=== PATIENT | female | born 1935 | race Caucasian/White ===

== ENCOUNTER → 2017-03-17 | Outpatient (CLI) | payer MEDICARE, BC ==
--- NOTE | 2017-03-17 14:27 | MM ---
Reason for exam: additional evaluation requested from prior study. Last mammogram was performed 1 year ago. History: Patient is postmenopausal and has history of breast cancer at age 63. Family history of premenopausal breast cancer in maternal aunt at age 38, breast cancer in maternal cousin at age 40, and breast cancer in maternal cousin at age 50. Benign stereotactic core biopsy of the right breast, February 26, 2004. Benign stereotactic core biopsy of the right breast, February 26, 2004. Benign stereotactic core biopsy of the left breast, October 29, 1998. Malignant lumpectomy of the left breast, March 03, 1998. Core biopsy of the left breast, February 17, 1998. Malignant stereotactic core biopsy of the left breast, February 17, 1998. Core biopsy of the left breast. 2 core biopsies of the right breast. Radiation therapy of the left breast. Took hormonal contraceptives for 7 years beginning at age 40. Took estrogen for 11 years beginning at age 52. Took progesterone for 11 years beginning at age 52. Took antineoplastic for 5 years. Physical Findings: Nurse did not find any significant physical abnormalities on exam. MG 3D Diag Mammo W/Cad TRINI Bilateral CC and MLO view(s) were taken. Prior study comparison: March 15, 2016, bilateral MG 3d diag mammo w/cad TRINI. March 13, 2015, bilateral MG 3d diag mammo w/cad TRINI. The breast tissue is heterogeneously dense. This may lower the sensitivity of mammography. Stable benign calcifications. Stable post operative distortion. No significant new findings when compared with previous films. These results were verbally communicated with the patient and result sheet given to the patient on 03/17/17. ASSESSMENT: Benign, BI-RAD 2 RECOMMENDATION: Routine screening mammogram of both breasts. Manage patient on a clinical basis.
--- NOTE | 2017-03-17 15:15 | BD ---
EXAMINATION TYPE: MG DEXA axial skeleton. DATE OF EXAM: 03/17/2017 COMPARISON: NONE CLINICAL HISTORY: Osteoporosis Height: 5 FT 1/4 IN Weight: 150 FRAX RISK QUESTIONS: Alcohol (3 or more units per day): NO Family History (Parent hip fracture): NO Glucocorticoids (More than 3mos): NO (Ex: prednisone, prednisolone, methylprednisolone, dexamethasone, and hydrocortisone). History of Fracture in Adulthood: YES Secondary Osteoporosis: 1. Type 1 Diabetes: NO 2. Hyperthyroidism: NO 3. Menopause before 45: NO 4. Malnutrition: NO 5. Chronic liver disease: NO Rheumatoid Arthritis: NO Current Tobacco Use: NO RISK FACTORS HISTORY OF: Spine Fracture: LUMBAR FX When: 1985 Surgery to Spine/Hip(right/left)/Wrist (right/left): LUMBAR SURG When: 1985 Active: YES Postmenopausal woman: AGE 50 Lost more than 2 inches in height since high school: YES MEDICATIONS: Additional Medications: MOBIC, SIMVASTATIN, NEURONTIN Additional History: EXAM MEASUREMENTS: Bone mineral density about the R hip (g/cm2): 1.067 Bone mineral density about the L hip (g/cm2): 1.040 T Score values are as follows: -----R Neck: 0.2 -----L Neck: 0.0 -----R Total: 0.4 -----L Total: 0.4 Bone mineral density has: DECREASED -0.3 % since study of: 2006 IMPRESSION: No evidence for osteoporosis at this time. NOTE: T-SCORE=SD OF THE YOUNG ADULT MEAN.
== END | disposition home or self-care (01) ==
LOC: RADMAMWWP 13:36
PROVIDERS: ATTEND Internal Medicine
DX: Z08 Encounter for follow-up examination after completed treatment for malignant neoplasm (principal); M81.0 Age-related osteoporosis without current pathological fracture; Z85.3 Personal history of malignant neoplasm of breast
CPT/HCPCS: 77080; G0204; G0279

== ENCOUNTER → 2018-07-10 | Outpatient (CLI) | payer MEDICARE, BC ==
--- NOTE | 2018-07-10 11:46 | MM ---
Reason for exam: additional evaluation requested from prior study. Last mammogram was performed 1 year and 4 months ago. History: Patient is postmenopausal and has history of breast cancer at age 63. Family history of premenopausal breast cancer in maternal aunt at age 38, breast cancer in maternal cousin at age 40, and breast cancer in maternal cousin at age 50. Benign stereotactic core biopsy of the right breast, February 26, 2004. Benign stereotactic core biopsy of the right breast, February 26, 2004. Benign stereotactic core biopsy of the left breast, October 29, 1998. Malignant lumpectomy of the left breast, March 03, 1998. Core biopsy of the left breast, February 17, 1998. Malignant stereotactic core biopsy of the left breast, February 17, 1998. Core biopsy of the left breast. 2 core biopsies of the right breast. Radiation therapy of the left breast. Took hormonal contraceptives for 7 years beginning at age 40. Took estrogen for 11 years beginning at age 52. Took progesterone for 11 years beginning at age 52. Took antineoplastic for 5 years. Physical Findings: Nurse did not find any significant physical abnormalities on exam. MG 3D Diag Mammo W/Cad TRINI Bilateral CC and MLO view(s) were taken. Prior study comparison: March 17, 2017, bilateral MG 3d diag mammo w/cad TRINI. March 15, 2016, bilateral MG 3d diag mammo w/cad TRINI. The breast tissue is heterogeneously dense. This may lower the sensitivity of mammography. Finding #1: Architectural distortion in the left breast consistent with known lumpectomy changes. Finding #2: There are typically benign vascular, round, linear calcifications in both breasts. Previous mammotome biopsy in the right breast x 2. There is no discrete abnormality. These results were verbally communicated with the patient and result sheet given to the patient on 07/10/18. ASSESSMENT: Benign, BI-RAD 2 RECOMMENDATION: Follow-up diagnostic mammogram of both breasts in 1 year.
== END | disposition home or self-care (01) ==
LOC: RADMAMWWP 10:05
PROVIDERS: ATTEND Internal Medicine
DX: Z08 Encounter for follow-up examination after completed treatment for malignant neoplasm (principal); Z85.3 Personal history of malignant neoplasm of breast
CPT/HCPCS: 77066; G0279; 77062

== ENCOUNTER → 2019-09-11 | Outpatient (CLI) | payer MEDICARE, BC ==
--- NOTE | 2019-09-11 13:40 | MM ---
Reason for exam: additional evaluation requested from prior study. Last mammogram was performed 1 year and 2 months ago. History: Patient is postmenopausal and has history of breast cancer at age 63. Family history of premenopausal breast cancer in maternal aunt at age 38, breast cancer in maternal cousin at age 40, and breast cancer in maternal cousin at age 50. Benign stereotactic core biopsy of the right breast, February 26, 2004. Benign stereotactic core biopsy of the right breast, February 26, 2004. Benign stereotactic core biopsy of the left breast, October 29, 1998. Malignant lumpectomy of the left breast, March 03, 1998. Core biopsy of the left breast, February 17, 1998. Malignant stereotactic core biopsy of the left breast, February 17, 1998. Core biopsy of the left breast. 2 core biopsies of the right breast. Radiation therapy of the left breast. Took hormonal contraceptives for 7 years beginning at age 40. Took estrogen for 11 years beginning at age 52. Took progesterone for 11 years beginning at age 52. Took antineoplastic for 5 years. Physical Findings: Nurse did not find any significant physical abnormalities on exam. MG 3D Diag Mammo W/Cad TRINI Bilateral CC and MLO view(s) were taken. Prior study comparison: July 10, 2018, bilateral MG 3d diag mammo w/cad TRINI. March 17, 2017, bilateral MG 3d diag mammo w/cad TRINI. The breast tissue is heterogeneously dense. This may lower the sensitivity of mammography. Benign calcifications. Stable post operative changes left breast. These results were verbally communicated with the patient and result sheet given to the patient on 09/11/19. ASSESSMENT: Benign, BI-RAD 2 RECOMMENDATION: Follow-up diagnostic mammogram of both breasts in 1 year. Manage patient on a clinical basis.
== END | disposition home or self-care (01) ==
LOC: RADMAMWWP 12:57
PROVIDERS: ATTEND Internal Medicine
DX: Z08 Encounter for follow-up examination after completed treatment for malignant neoplasm (principal); Z85.3 Personal history of malignant neoplasm of breast
CPT/HCPCS: 77066; G0279; 77062

== ENCOUNTER → 2019-10-17 | Outpatient (CLI) | payer MEDICARE, BC ==
--- NOTE | 2019-10-17 10:58 | XR ---
EXAMINATION TYPE: XR chest 2V DATE OF EXAM: 10/17/2019 COMPARISON: CT December 27, 2013. Two-view chest x-ray October 03, 2012. HISTORY: History of breast cancer with productive cough for 5 months. TECHNIQUE: Frontal and lateral views of the chest are obtained. FINDINGS: There is no focal air space opacity, pleural effusion, or pneumothorax seen. The cardiac silhouette size is within normal limits with atherosclerotic thoracic aorta. S-shaped scoliosis with multilevel spurring. Asymmetric diminished size of left breast likely reflects lumpectomy changes giv en patient's history of breast cancer. IMPRESSION: No acute cardiopulmonary process.
== END | disposition home or self-care (01) ==
LOC: RADXRMAIN 10:32
PROVIDERS: ATTEND Internal Medicine
DX: R05 Cough (principal)
CPT/HCPCS: 71046

== ENCOUNTER → 2019-11-26 | Outpatient (CLI) | payer MEDICARE, BC ==
--- NOTE | 2019-11-26 17:08 | BD ---
EXAMINATION TYPE: Axial Bone Density DATE OF EXAM: 11/26/2019 COMPARISON: NONE CLINICAL HISTORY: Height: 60 Weight: 143.1 FRAX RISK QUESTIONS: Alcohol (3 or more units per day): no Family History (Parent hip fracture): no Glucocorticoids (More than 3mos): no (Ex: prednisone, prednisolone, methylprednisolone, dexamethasone, and hydrocortisone). History of Fracture in Adulthood: no Secondary Osteoporosis: 1. Type 1 Diabetes: no 2. Hyperthyroidism: no 3. Menopause before 45: no 4. Malnutrition: no 5. Chronic liver disease: no Rheumatoid Arthritis: no Current Tobacco Use: no RISK FACTORS HISTORY OF: Surgery to Spine/Hip(right/left)/Wrist (right/left): lumbar spine When: 40 years ago Family History of Osteoporosis: no Active: yes Diet low in dairy products/other sources of calcium: no Postmenopausal woman: age 50 Lost more than 2 inches in height since high school: yes MEDICATIONS: arthritis meds, blood pressure meds, cholesterol meds Additional History: EXAM MEASUREMENTS: Bone mineral densitometry was performed using the [employer] System. Bone mineral density about the R hip (g/cm2): 1.116 Bone mineral density about the L hip (g/cm2): 1.142 T Score values are as follows: -----R Neck: 0.6 -----L Neck: 0.7 -----R Total: 0.1 -----L Total: 0.4 Bone mineral density has: decreased -1.3 % since study of: 03.17.2017 Bone mineral density about the L Wrist (g/cm2): 0.498 T Score values are as follows: -----Dist. R+U: -2.6 -----Prox. R+U: -2.5 -----Radius total: -2.9 Bone mineral density : baseline IMPRESSION: Osteoporosis (T Score less than -2.5). There is increased fracture risk and therapy is usually indicated based on age. Re-Screen 1-2 years. NOTE: T-SCORE=SD OF THE YOUNG ADULT MEAN.
== END | disposition home or self-care (01) ==
LOC: RADBDWWP 12:29
PROVIDERS: ATTEND Internal Medicine
DX: M81.0 Age-related osteoporosis without current pathological fracture (principal)
CPT/HCPCS: 77080

== ENCOUNTER → 2020-01-04 | Outpatient (CLI) | payer MEDICARE, BC | END | disposition home or self-care (01) | LOC: LABPAT 14:21 | PROVIDERS: ATTEND Family Medicine | DX: Z01.818 Encounter for other preprocedural examination (principal) | CPT/HCPCS: 93005 ==

== ENCOUNTER → 2020-01-11 | Outpatient (CLI) | payer MEDICARE, BC | END | disposition home or self-care (01) | LOC: LABPAT 14:21 | PROVIDERS: ATTEND Orthopaedic Surgery | DX: Z01.812 Encounter for preprocedural laboratory examination (principal) | CPT/HCPCS: 87070 ==

== ENCOUNTER → 2020-01-14 | Outpatient (CLI) | payer MEDICARE, BC | END | disposition home or self-care (01) | LOC: LABPAT 14:41 | PROVIDERS: ATTEND Orthopaedic Surgery | DX: Z01.818 Encounter for other preprocedural examination (principal); M16.12 Unilateral primary osteoarthritis, left hip; Z79.01 Long term (current) use of anticoagulants | CPT/HCPCS: 36415; 80053; 81003; 85610; 85730; 86850; 86900; 86901 ==

== ENCOUNTER 2020-01-22 08:01 | Day surgery (SDC) | payer MEDICARE, BC ==
[2020-01-14 15:40] LABS: Appearance,Urine Clear (Clear); Bilirubin,Urine Negative (Negative); Blood,Urine Negative (Negative); Color,Urine Light Yellow; Glucose,Urine (UA) Negative (Negative); Ketones,Urine Negative (Negative); Leukocyte Esterase,Urine Negative (Negative); Nitrite,Urine Negative (Negative); PH, Urine 5.5 (5.0-8.0); Protein,Urine Negative (Negative); Specific Gravity,Urine 1.006 (1.001-1.035); Urobilinogen,Urine <2.0 mg/dL (<2.0)
[2020-01-14 16:19] LABS: INR 0.9 (<1.2); Partial Thromboplastin Time 23.9 sec (22.0-30.0); Prothrombin Time 9.7 sec (9.0-12.0)
[2020-01-14 17:33] LABS: Albumin 4.3 g/dL (3.5-5.0); Potassium 5.5 mmol/L (3.5-5.1); Total Bilirubin 0.5 mg/dL (0.2-1.3); Total Protein 6.7 g/dL (6.3-8.2)
[2020-01-15 14:44] VITALS: BMI 25.3
[~2020-01-22 08:01] MED LIST: ACETAMINOPHEN TAB 500 MG TAB PO ONE; GABAPENTIN 300 MG CAP PO ONE; HYDROmorphone 0.5 MG/0.5 ML SYRINGE IVP PRN; LIDOCAINE 1% (10MG/ML) FOR IV START INTRADERMA PRN; MELOXICAM 7.5 MG TAB PO ONE; ONDANSETRON 4 MG/2 ML VIAL IVP ONE; TRANEXAMIC ACID 1,000 MG in SODIUM CHLORIDE 0.9% 100 ML IVPB ONE
[2020-01-22] MEDS ORDERED: DEXAMETHASONE SOD PHOSPHATE 10 MG/ML 1 ML VIAL IV ONE (08:54)
[2020-01-22] MEDS: LACTATED RINGERS 1,000 ML IV SCH (08:55)
[2020-01-22] MEDS ORDERED: NALOXONE 0.4 MG/ML 1 ML VIAL IV PRN (09:37)
[2020-01-22] MEDS ORDERED: HYDROmorphone 0.5 MG/0.5 ML SYRINGE IVP PRN ×3 (09:37)
[2020-01-22] MEDS ORDERED: ONDANSETRON 4 MG/2 ML VIAL IVP PRN (09:37)
[2020-01-22] MEDS ORDERED: MAGNESIUM HYDROXIDE 2,400 MG/10 ML CUP PO PRN (09:37)
[2020-01-22] MEDS ORDERED: PROPOFOL 10 MG/ML 20 ML VIAL IV ONE (09:58)
[2020-01-22] MEDS ORDERED: SODIUM CHLORIDE 0.9% IRRIG 1,000 ML BTL IRRIGATION ONE (09:58)
[2020-01-22] MEDS ORDERED: SODIUM CHLORIDE 0.9% 100 ML BAG ONE (09:58)
[2020-01-22] MEDS ORDERED: HEPARIN SODIUM,PORCINE 10,000 UNIT/ML 1 ML VIAL ONE (09:58)
[2020-01-22] MEDS ORDERED: TRANEXAMIC ACID 1,000 MG/10 ML VIAL ONE (09:58)
[2020-01-22] MEDS ORDERED: MIDAZOLAM 2 MG/2 ML VIAL ONE (09:58)
[2020-01-22] MEDS ORDERED: ceFAZolin 3,000 MG in SODIUM CHLORIDE 0.9% IRRIGATIO 3,000 ML IRRIGATION ONE (10:01)
[2020-01-22] MEDS: ROPIVACAINE 246.25 MG, EPINEPHrine 0.5 MG, KETOROLAC 30 MG, cloNIDine HCL/PF 80 MCG, WA... MISCELLANE ONE ×10 (10:30→11:00)
--- NOTE | 2020-01-22 11:06 | P.OP ---
Date of Procedure: 01/22/20 Preoperative Diagnosis: Severe osteoarthritis left hip Postoperative Diagnosis: Severe osteoarthritis left hip Procedure(s) Performed: Left total hip arthroplasty with a direct anterior approach Implants: Chambers and nephew Polarstem size 1 standard Chambers & Nephew R3, 3 hole acetabular shell, 48 mm Chambers & Nephew reflection 6.5 mm cancellus screw, 20 mm 2 Chambers [employer] Nephew R3, XLPE 20 acetabular liner Chambers & Nephew Oxinium femoral head 32 m, +0 All components were press-fit. The articulation is Oxinium on polyethylene. Anesthesia: spinal Surgeon: Sherman Navarro Bone Crusher #1: Ana Smith Estimated Blood Loss (ml): 200 (65 mL returned with Cell Saver) Pathology: other (Femoral head) Condition: stable Disposition: PACU Indications for Procedure: After failure of conservative treatment we discussed the surgical and nonsurgical treatment options at length. Patient wishes to proceed with a total hip arthroplasty with a direct anterior approach. Complications specific to this procedure were discussed at length, including but not limited to infection, leg length discrepancy, dislocation, and nerve injury. Covid-19 was also discussed at length with the patient, and they are aware of the current policies and procedures. The patient was given the option of delaying surgery, but they elect to proceed knowing these risks. Patient is aware of all these complications and informed consent was obtained Operative Findings: The operative findings are consistent with severe osteoarthritis the left hip Description of Procedure: Patient was seen and evaluated in the preoperative area, consent was reviewed, and the surgical site was marked with a skin marker. Patient was then brought to the operating room and given prophylactic antibiotics intravenously. 1 g of Tranexamic acid was also given. A spinal anesthetic was administered by the anesthesia department. The patient was then placed on the Roosevelt table with the bony prominences well-padded. The hip area was then prepped and draped in usual sterile fashion. A universal timeout was then performed, which confirmed the patient's name, surgical site, ALLERGIES, and procedure being performed. Next the incision site was located at 1 cm distal and 1 cm lateral to the anterior superior iliac spine. The skin and subcutaneous tissues were sharply incised. Incision was carefully dissected down to the fascia overlying the tensor fascia jaye muscle. This fascia was then incised in line with the incision. Next, using blunt finger dissection, the tensor fascia jaye muscle was dissected off its investing fascia. The muscle was then carefully retracted laterally with a cobra retractor over the lateral neck of the femur. Next, the circumflex vessels were identified and cauterized using the AquaMantis device. The anterior hip capsule was then exposed. The capsule was then opened and an inverted T fashion. Cobra retractors were then placed intracapsularly. The proximal femur was then visualized. The femoral neck was then osteotomized appropriate level above the lesser trochanter. Small amount of traction was placed with the Roosevelt table. A small wedge of bone was then removed from the remaining femoral head. Next, using a corkscrew femoral head was easily removed from the acetabulum. On gross visual inspection, the femoral head had complete loss of articular cartilage in multiple periarticular osteophytes. Attention was then turned to the acetabulum. the acetabulum was exposed and any remaining labrum was excised. Sequential reaming of the acetabulum was performed using fluoroscopic guidance. When the appropriate size was reached, a trial was then placed. The position and fit of the trial was checked with fluoroscopy. The trial was then removed. Then, using fluoroscopic guidance, the final implant was impacted at 20 of anteversion and 40 of abduction, and fully seated in the acetabulum. 2 screws were then placed in the acetabulum. Again fluoroscopy was used to check position of the screws. Next, the liner was then impacted, with a 20 elevated liner located in the anterior superior quadrant. Component locking was confirmed. Attention was then directed to the femur. With the aid of the Roosevelt table, the femur was externally rotated to approximately 130, extended, and abducted under the opposite leg. A side hook was then placed under the proximal femur, and the side hook elevator was used to elevate the proximal femur. Retractors were then placed. A capsular release was performed, as well as a release of the conjoined tendon, which afforded excellent visualization of the proximal femur. Next, a box osteotome was used to lateralize the proximal femur. A handle bender was then used to locate the femoral canal. Sequential broaching was then performed with appropriate size which afforded excellent fixation in the proximal femur. A trial was then placed with appropriate head and neck, and the hip was gently reduced with the aid of the Roosevelt table. Fluoroscopy was then used to check position of the components, as well as to ensure equal leg lengths. The hip was then gently dislocated and the trials were then removed. Final implants were then impacted and the hip was again reduced. Final fluoroscopic x-rays confirmed that the components were in anatomic position, as well as equal leg lengths. The hip was also taken through range of motion, and found to be stable. The hip was then copiously irrigated with antibiotic solution with pulsatile lavage. The hip was then irrigated with Irrisept solution. The soft tissues were then injected with a ropivacaine solution, which consisted of 246.25 mg of ropivacaine, 0.5 mg of epinephrine, 30 mg of Toradol, 80 g of clonidine, and 48.45 mL of sterile water, for a total of 100 mL of fluid injected. A second dose of 1 g of Tranexamic acid was also given. the fascia was then closed with 2-0 strata fix suture. The subcutaneous tissue was closed with 3-0 Vicryl. The subcuticular tissue was closed with 3-0 strata fix suture. The skin was then closed with Dermabond glue and a sterile silver dressing. The patient was then transferred to the recovery room in stable condition. The nurse practitioner physician assistant LUIZ Atwood was required due to the complexity of surgery, and the need for skilled guest services assistant for positioning, draping, exposure, retraction, and closure of the wound.
--- NOTE | 2020-01-22 12:11 | XR ---
EXAMINATION TYPE: XR Hip Limited LT DATE OF EXAM: 01/22/2020 CLINICAL HISTORY: Left hip pain and osteoarthritis. TECHNIQUE: Single AP portable view of left hip is obtained immediately postoperatively. COMPARISON: None. FINDINGS: Metallic hardware from left hip arthroplasty is seen and appears satisfactory in alignment and position. There is evidence of recent surgery with subcutaneous gas noted surrounding prosthesis extending superiorly. IMPRESSION: Metallic hardware from left hip arthroplasty is satisfactory in position.
--- NOTE | 2020-01-22 13:33 | FL ---
EXAMINATION TYPE: FL guidance operating room, XR Hip Limited LT DATE OF EXAM: 01/22/2020 CLINICAL HISTORY: Left hip pain and osteoarthritis. TECHNIQUE: Fluoroscopy. Intraoperative limited views left hip. COMPARISON: None. FINDINGS: Fluoroscopic guidance was provided during left hip replacement procedure performed by Dr. Navarro. A total of 39 seconds of fluoroscopic time was utilized during the procedure and two spot images was acquired. Intraoperative images acquired show metallic hardware from total hip arthroplasty satisfactory in pos ition on frontal projection. IMPRESSION: As Above.
[2020-01-22] MEDS: HYDROcodone/APAP 5-325MG 1 EACH TAB PO PRN ×2 (14:32→20:59)
--- NOTE | 2020-01-22 15:02 | P.CONS ---
History of Present Illness - Reason for Consult Consult date: 01/22/20 Medical management hypertension, hyperlipidemia, anxiety Requesting physician: Sherman Navarro - Chief Complaint Severe left hip osteoarthritis status post left total hip arthroplasty - History of Present Illness This is an 84-year-old female with history of left hip severe osteoarthritis, status post left total hip arthroplasty in a patient with past medical history of breast cancer, hyperlipidemia, hypertension, osteoarthritis, former smoker, anxiety, multiple other medical issues. Just returned back ,tolerated procedure well. Currently denies pain. Denies chest pain, palpitations or shortness of breath. Hard of hearing, does not have her hearing aids in. Labs from 01/14/2020 reported sodium 126, potassium 5.5. Review of Systems ROS Statement: Those systems with pertinent positive or pertinent negative responses have been documented in the HPI. ROS Other: All systems not noted in ROS Statement are negative. Past Medical History Past Medical History: Cancer, Hyperlipidemia, Hypertension, Musculoskeletal Disorder, Osteoarthritis (OA) Additional Past Medical History / Comment(s): hx. breast cancer 20 yrs. 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 Past Anesthesia/Blood Transfusion Reactions: Previous Problems w/ Anesthesia Additional Past Anesthesia/Blood Transfusion Reaction / Comm: slow to come out of anesthesia Past Psychological History: Anxiety Smoking Status: Former smoker Past Alcohol Use History: Daily Additional Past Alcohol Use History / Comment(s): quit smoking @age of 30, <ppd for approx. 15 yrs., glass of wine daily w/dinner Past Drug Use History: None Reported - Past Family History Mother Sister(s) Family Medical History: Cancer Medications and Allergies Home Medications Medication Instructions Recorded Confirmed Type Meloxicam [Mobic] 7.5 mg PO DAILY 12/27/13 01/22/20 History Simvastatin [Zocor] 10 mg PO HS 12/27/13 01/22/20 History Calcium Carbonate [Calcium] 600 mg PO DAILY 01/15/20 01/22/20 History Cholecalciferol [Vitamin D3 (25 2,000 unit PO DAILY 01/15/20 01/22/20 History Mcg = 1000 Iu)] Gabapentin [Neurontin] 600 mg PO BID 01/15/20 01/22/20 History Glucosamine/Chondr Lopez A Sod [Osteo 1 each PO DAILY 01/15/20 01/22/20 History Bi-Flex Caplet] Losartan Potassium [Cozaar] 100 mg PO DAILY 01/15/20 01/22/20 History Magnesium Oxide [Mag-Oxide] 200 mg PO HS 01/15/20 01/22/20 History Ubidecarenone [Co Q-10] 100 mg PO DAILY 01/15/20 01/22/20 History traMADol HCL [Ultram] 50 mg PO Q6HR PRN 01/15/20 01/22/20 History Allergies Allergy/AdvReac Type Severity Reaction Status Date / Time influenza virus vaccine qs Allergy Anaphylaxis Verified 01/22/20 08:20 2012- [From Single Use EZ Flu] Iodinated Contrast Media Allergy Unknown Verified 01/22/20 08:20 [Iodinated Contrast Media - IV Dye] Sulfa (Sulfonamide Allergy Nausea & Verified 01/22/20 08:20 Antibiotics) Vomiting Physical Exam Vitals: Vital Signs Temp Pulse Pulse Resp BP Pulse Ox 01/22/20 12:19 66 16 109/52 100 01/22/20 12:04 70 16 111/52 93 L 01/22/20 11:45 72 14 97/47 95 01/22/20 11:29 96.8 F L 79 18 110/52 95 01/22/20 08:27 97.4 F L 84 16 176/74 99 Intake and Output 01/21/20 01/22/20 01/22/20 22:59 06:59 14:59 Intake Total 971 Output Total 200 Balance 771 Intake: IV 971 Output: Estimated Blood Loss 200 Other: Weight 62 kg PHYSICAL EXAM: VITAL SIGNS: As above GENERAL: Lying in bed, no acute distress HEENT: Conjunctivae normal. eyes normal. NECK: No JVD. No thyroid enlargement. No LNs CARDIOVASCULAR: S1, S2 regular. No murmur RESPIRATION: Breath sounds diminished in the bases. No rhonchi or crackles. No bronchial breathing. ABDOMEN: Soft, nontender . No guarding. no masses palpable. No ascites, No hepatosplenomegaly.Bowel sounds heard. EXTREMITIES: Left hip dressing clean dry and intact, minimal edema, Positive PT,DP pulses PSYCHIATRY: Alert and oriented X3, mood and affect normal. Mild anxiety. NERVOUS SYSTEM: Cranial N 2-12 grossly normal. Moves all 4 limbs. No focal deficits. Strength and sensation grossly intact. Skin: no lesions, no rash Lymphatic system. No LN neck axilla. Results CBC & Chem 7: 01/14/20 15:01 Assessment and Plan Assessment: Severe osteoarthritis of left hip, failed conservative management ,status post left total hip arthroplasty with direct anterior approach Hyponatremia, from labs of 01/14/2020, BMP pending Hyperkalemia, from labs of 01/14/2020, BMP pending Hypertension Hyperlipidemia History of breast cancer Former nicotine dependence Hospital course: Continue her medication regime ,monitoring and symptomatic treatment. Pain management, anticoagulation as per orthopedic surgery. PT/OT. Home meds have been reviewed and resumed accordingly. GI prophylaxis of Protonix added. f/u BMP pending. Thank you Dr. Navarro for this consult. The impression and plan of care has been dictated as directed. : I performed a history and examination of this patient, discussed the same with the dictator. I agree with the dictator's note ,documented as a scribe. Any additional findings or plans will be noted.
[2020-01-22 15:15] LABS: Sodium 128 mmol/L (137-145)
[2020-01-22 15:17] LABS: African American GFR (CKD) >90 (>60 ml/min/1.73 sqM); Anion Gap 5 mmol/L; Blood Urea Nitrogen 23 mg/dL (7-17); Calcium 8.8 mg/dL (8.4-10.2); Carbon Dioxide 23 mmol/L (22-30); Chloride 100 mmol/L (98-107); Glucose 175 mg/dL (74-99); Non-African American GFR(CKD) 80 (>60 ml/min/1.73 sqM); Potassium 4.6 mmol/L (3.5-5.1)
[2020-01-22] MEDS: SODIUM CHLORIDE 0.9% 1,000 ML IV SCH (17:33)
[2020-01-22] MEDS: PANTOPRAZOLE 40 MG/10 ML VIAL IVP SCH (19:18)
[2020-01-22] MEDS: SENNOSIDES-DOCUSATE SODIUM 1 EACH TAB PO SCH (20:58)
[2020-01-22] MEDS: ASPIRIN 325 MG TAB PO SCH (20:59)
[2020-01-23] MEDS: SODIUM CHLORIDE 0.9% 1,000 ML IV SCH ×2 (01:42→18:30)
[2020-01-23] MEDS: LACTATED RINGERS 1,000 ML IV SCH (03:45)
[2020-01-23 06:18] LABS: Basophils % (A) 0 %; Eosinophils # (A) 0.1 k/uL (0-0.7); Eosinophils % (A) 1 %; HCT 27.7 % (34.0-46.0); HGB 9.1 gm/dL (11.4-16.0); Lymphocytes # (A) 1.4 k/uL (1.0-4.8); Lymphocytes % (A) 15 %; MCH 31.9 pg (25.0-35.0); MCHC 32.7 g/dL (31.0-37.0); MCV 97.4 fL (80.0-100.0); Mean Platelet Volume 6.8; Monocytes # (A) 0.4 k/uL (0-1.0); Monocytes % (A) 5 %; Neutrophils # (A) 7.2 k/uL (1.3-7.7); Neutrophils % (A) 78 %; Platelet Count 177 k/uL (150-450); RBC 2.84 m/uL (3.80-5.40); RDW 12.2 % (11.5-15.5); WBC 9.2 k/uL (3.8-10.6)
[2020-01-23] MEDS: LOSARTAN 50 MG TAB PO SCH (09:21)
[2020-01-23] MEDS: ASPIRIN 325 MG TAB PO SCH ×2 (09:35→20:53)
[2020-01-23] MEDS: PANTOPRAZOLE 40 MG/10 ML VIAL IVP SCH (09:45)
[2020-01-23] MEDS: MELOXICAM 7.5 MG TAB PO SCH (09:45)
[2020-01-23] MEDS: GABAPENTIN 300 MG CAP PO SCH ×2 (09:45→20:53)
--- NOTE | 2020-01-23 10:01 | P.PN ---
Subjective Progress Note Date: 01/23/20 This is a 84-year-old female who is status post left total hip arthroplasty. This is postoperative day #1 and patient is seen and evaluated at bedside with Dr. Sherman Navarro. Patient does complain of some soreness in the left hip today. Per nursing, the patient had an episode of dizziness on the commode after walking the halls with physical therapy. Patient denies any fever/chills, numbness, weakness, tingling, abdominal pain, shortness of breath or chest pain. Objective - Vital Signs Vital signs: Vital Signs Temp 98.2 F 01/23/20 07:37 Pulse 71 01/23/20 07:37 Resp 14 01/23/20 07:37 BP 103/60 01/23/20 07:37 Pulse Ox 96 01/23/20 02:15 Intake & Output 01/22/20 01/23/20 01/23/20 18:59 06:59 18:59 Intake Total 1036 Output Total 200 Balance 836 Weight 62 kg Intake: IV 971 Intake, IV Titration 65 Amount Sodium Chloride 0.9% 1, 65 000 ml @ 65 mls/hr IV . [id number] [facility] Rx#:[id number] Output: Estimated Blood Loss 200 Other: Voiding Method Toilet # Voids 2 - Exam Vital signs are stable. Patient is in no acute distress and is alert and orien holli 3. Calf is soft and nontender to palpation. Dressing is clean, dry, and intact. Patient has full foot and ankle motion without pain or difficulty. Neurovascular status and circulatory status are intact. - Labs CBC & Chem 7: 01/23/20 05:18 01/22/20 14:39 Labs: Abnormal Lab Results - Last 24 Hours (Table) 01/22/20 01/23/20 Range/Units 14:39 05:18 RBC 2.84 L (3.80-5.40) m/uL Hgb 9.1 L (11.4-16.0) gm/dL Hct 27.7 L (34.0-46.0) % Sodium 128 L (137-145) mmol/L BUN 23 H (7-17) mg/dL Glucose 175 H (74-99) mg/dL Assessment and Plan Plan: Continue routine postop care and pain control. Continue anticoagulation with aspirin 325 mg twice a day. Weightbearing as tolerated with a walker. Leave dressing in place for 10 days. Appreciate input from medicine. Will monitor the patient's symptoms of dizziness. Hemoglobin is 9.1 today. Patient's vital signs are stable. Likely discharge home with homecare tomorrow.
--- NOTE | 2020-01-23 16:10 | P.PN ---
Subjective Progress Note Date: 01/23/20 This is an 84-year-old female with history of left hip severe osteoarthritis, status post left total hip arthroplasty in a patient with past medical history of breast cancer, hyperlipidemia, hypertension, osteoarthritis, former smoker, anxiety, multiple other medical issues. Just returned back ,tolerated procedure well. Currently denies pain. Denies chest pain, palpitations or shortness of breath. Hard of hearing, does not have her hearing aids in. Labs from 01/14/2020 reported sodium 126, potassium 5.5. 01/23/2020 postop day #1. Upon ambulating with PT in hallway and again to bathroom, developed dizziness, relieved with rest. Hemoglobin 9.1, prior hemoglobin in July 2019 11.5. Estimated blood loss 200 MLS with 65 MLS returned with Cell Saver reported. Reports that she did not sleep well, did not like breakfast, therefore no intake this morning. Passing flatus. Pain controlled. Sodium up to 128. Denies chest pain, palpitations or shortness of breath. Objective - Vital Signs Vital signs: Vital Signs Temp 98.2 F 01/23/20 07:37 Pulse 71 01/23/20 07:37 Resp 14 01/23/20 07:37 BP 103/60 01/23/20 07:37 Pulse Ox 96 01/23/20 02:15 Intake & Output 01/22/20 01/23/20 01/23/20 18:59 06:59 18:59 Intake Total 1036 Output Total 200 Balance 836 Weight 62 kg Intake: IV 971 Intake, IV Titration 65 Amount Sodium Chloride 0.9% 1, 65 000 ml @ 65 mls/hr IV . [id number] [facility] Rx#:[id number] Output: Estimated Blood Loss 200 Other: Voiding Method Toilet Toilet # Voids 2 - Exam VITAL SIGNS: As above GENERAL: Sitting up in bed, no acute distress HEENT: Conjunctivae normal. eyes normal. Oral mucosa moist. NECK: No JVD. No thyroid enlargement. No LNs CARDIOVASCULAR: S1, S2 regular. No murmur RESPIRATION: Breath sounds diminished in the bases. No rhonchi or crackles. No wheezing. ABDOMEN: Soft, nontender . No guarding. Positive Bowel sounds. EXTREMITIES: Left hip dressing clean dry and intact, minimal edema, Positive PT,DP pulses PSYCHIATRY: Alert and oriented X3, mood and affect normal. NERVOUS SYSTEM: Cranial N 2-12 grossly normal. Moves all 4 limbs. No focal def icits. Strength and sensation grossly intact. Skin: no lesions, no rash - Labs CBC & Chem 7: 01/23/20 05:18 01/22/20 14:39 Labs: Abnormal Lab Results - Last 24 Hours (Table) 01/22/20 01/23/20 Range/Units 14:39 05:18 RBC 2.84 L (3.80-5.40) m/uL Hgb 9.1 L (11.4-16.0) gm/dL Hct 27.7 L (34.0-46.0) % Sodium 128 L (137-145) mmol/L BUN 23 H (7-17) mg/dL Glucose 175 H (74-99) mg/dL Assessment and Plan Assessment: Severe osteoarthritis of left hip, failed conservative management ,status post left total hip arthroplasty with direct anterior approach Hyponatremia, from labs of 01/14/2020, BMP pending Hyperkalemia, from labs of 01/14/2020, BMP pending Hypertension Hyperlipidemia History of breast cancer Former nicotine dependence Hospital course: Continue medication regime ,monitoring and symptomatic treatment. Aggressive pulmonary toileting with incentive spirometer reinforced. Close monitoring of hemoglobin, electrolytes with repeat labs ordered for a.m. PT/OT. Pain management, anticoagulation as per orthopedic surgery. Complained unable to sleep in hospital, melatonin added to med regimen. Discharge planning in progress for tomorrow. The impression and plan of care has been dictated as directed. : I performed a history and examination of this patient, discussed the same with the dictator. I agree with the dictator's note ,documented as a scribe. Any additional findings or plans will be noted.
[2020-01-23] MEDS: HYDROcodone/APAP 5-325MG 1 EACH TAB PO PRN (16:59)
[2020-01-23 20:30] LABS: African American GFR (CKD) 59.9 (60.0-200.0); Calcium 8.2 mg/dL (8.7-10.3); Non-African American GFR(CKD) 51.7 (60.0-200.0); Potassium 5.3 mmol/L (3.5-5.5)
[2020-01-23] MEDS: SENNOSIDES-DOCUSATE SODIUM 1 EACH TAB PO SCH (20:53)
[2020-01-23] MEDS ORDERED: MELATONIN 3 MG TABLET PO SCH (21:00)
[2020-01-23] MEDS ORDERED: MAGNESIUM OXIDE 400 MG TAB PO SCH (21:00)
[2020-01-24] MEDS: LACTATED RINGERS 1,000 ML IV SCH (01:01)
[2020-01-24] MEDS: HYDROcodone/APAP 5-325MG 1 EACH TAB PO PRN ×2 (02:03→09:52)
[2020-01-24 02:55] VITALS: TEMP 98.2
[2020-01-24 06:36] LABS: Basophils % (A) 0 %; Eosinophils # (A) 0.2 k/uL (0-0.7); Eosinophils % (A) 2 %; HCT 26.4 % (34.0-46.0); HGB 8.5 gm/dL (11.4-16.0); Lymphocytes % (A) 15 %; MCHC 32.3 g/dL (31.0-37.0); Mean Platelet Volume 7.1; Monocytes # (A) 0.3 k/uL (0-1.0); Monocytes % (A) 5 %; Neutrophils # (A) 5.4 k/uL (1.3-7.7); Neutrophils % (A) 77 %; Platelet Count 158 k/uL (150-450); RBC 2.66 m/uL (3.80-5.40); RDW 12.3 % (11.5-15.5)
[2020-01-24 07:48] VITALS: BP 167/70; PULSE 74; RESP 16
[2020-01-24] MEDS: SODIUM CHLORIDE 0.9% 1,000 ML IV SCH (08:05)
--- NOTE | 2020-01-24 09:33 | P.DS ---
Providers Expected date of discharge: 01/24/20 Attending physician: Sherman Navarro Consults: 01/22/20 09:37 Consult Physician Routine Consulting Provider: Tyson Rome Consult Reason/Comments: medical management Do you want consulting provider notified?: Yes Primary care physician: Tyson Rome - Discharge Diagnosis(es) (1) Osteoarthritis of left hip Current Visit: Yes Status: Acute (2) S/P total hip arthroplasty Current Visit: Yes Status: Acute Hospital Course: This is a 84-year-old female with known history of degenerative arthritis of the left hip. The patient presents for evaluation. After discussion and consideration patient elects to proceed with total hip arthroplasty. The patient is seen preoperatively by Dr. Navarro and medically cleared for surgery by their primary care physician. Patient is admitted to [facility] on 01/22/2020 for total hip arthroplasty. The procedure is performed without complication or sequelae. The patient is doing well postoperatively. Labs and vital signs are stable on day of discharge. On day of discharge patient's hip incision is healing well. There is minimal erythema. There is no drainage noted at this time. There is minimal soft tissue swelling to the hip and thigh. Patient has full foot and ankle motion without difficulty or pain. Calf is soft and nontender to palpation. Neurovascular status to the left lower extremity is intact. Patient is discharged home in good condition. Opioid start talking form is reviewed and signed. Please see med rec for accurate list of home medications. Plan - Discharge Summary Discharge Rx Participant: Yes New Discharge Prescriptions: New Aspirin 325 mg PO BID #60 tab HYDROcodone/APAP 5-325MG [[place] 5-325] 1 - 2 tab PO Q6HR PRN #48 tab PRN Reason: Pain Sennosides [Senokot] 2 tab PO DAILY PRN #60 tablet PRN Reason: Constipation No Action Simvastatin [Zocor] 10 mg PO HS Meloxicam [Mobic] 7.5 mg PO DAILY Losartan Potassium [Cozaar] 100 mg PO DAILY traMADol HCL [Ultram] 50 mg PO Q6HR PRN PRN Reason: Pain Gabapentin [Neurontin] 600 mg PO BID Cholecalciferol [Vitamin D3 (25 Mcg = 1000 Iu)] 2,000 unit PO DAILY Ubidecarenone [Co Q-10] 100 mg PO DAILY Magnesium Oxide [Mag-Oxide] 200 mg PO HS Glucosamine/Chondr Lopez A Sod [Osteo Bi-Flex Caplet] 1 each PO DAILY Calcium Carbonate [Calcium] 600 mg PO DAILY Discharge Medication List Meloxicam [Mobic] 7.5 mg PO DAILY 12/27/13 [History] Simvastatin [Zocor] 10 mg PO HS 12/27/13 [History] Calcium Carbonate [Calcium] 600 mg PO DAILY 01/15/20 [History] Cholecalciferol [Vitamin D3 (25 Mcg = 1000 Iu)] 2,000 unit PO DAILY 01/15/20 [History] Gabapentin [Neurontin] 600 mg PO BID 01/15/20 [History] Glucosamine/Chondr Lopez A Sod [Osteo Bi-Flex Caplet] 1 each PO DAILY 01/15/20 [History] Losartan Potassium [Cozaar] 100 mg PO DAILY 01/15/20 [History] Magnesium Oxide [Mag-Oxide] 200 mg PO HS 01/15/20 [History] Ubidecarenone [Co Q-10] 100 mg PO DAILY 01/15/20 [History] traMADol HCL [Ultram] 50 mg PO Q6HR PRN 01/15/20 [History] Aspirin 325 mg PO BID #60 tab 01/24/20 [Rx] HYDROcodone/APAP 5-325MG [[place] 5-325] 1 - 2 tab PO Q6HR PRN #48 tab 01/24/20 [Rx] Sennosides [Senokot] 2 tab PO DAILY PRN #60 tablet 01/24/20 [Rx] Follow up Appointment(s)/Referral(s): [facility], [NON-STAFF] - As Needed Sherman Navarro DO [Doctor of Osteopathic Medicine] - 2 Weeks Activity/Diet/Wound Care/Special Instructions: Weightbearing as tolerated with walker. Leave dressing intact. Dressing may be removed by home care nurse or by patient in 10 days. May shower with dressing on. Please take aspirin 325mg twice daily for 30 days to prevent blood clots. Recommend use of compression stockings daily until follow up to help prevent swelling and blood clots. May remove at night before sleeping. Please follow-up with [facility] in 2 weeks and call with any questions or concerns, . Discharge Disposition: HOME WITH HOME HEALTH SERVICES
[2020-01-24 09:43] LABS: African American GFR (CKD) 92.2 (60.0-200.0); Anion Gap 4.1 mmol/L (4.00-12.00); BUN/Creat Ratio 21.43 Ratio (12.00-20.00); Calcium 7.8 mg/dL (8.7-10.3); Carbon Dioxide 24.9 mmol/L (21.6-31.8); Non-African American GFR(CKD) 79.6 (60.0-200.0); Potassium 4.5 mmol/L (3.5-5.5)
[2020-01-24] MEDS: ASPIRIN 325 MG TAB PO SCH (09:48)
[2020-01-24] MEDS: GABAPENTIN 300 MG CAP PO SCH (09:49)
[2020-01-24] MEDS: LOSARTAN 50 MG TAB PO SCH (09:49)
[2020-01-24] MEDS: MELOXICAM 7.5 MG TAB PO SCH (09:50)
[2020-01-24] MEDS: PANTOPRAZOLE 40 MG/10 ML VIAL IVP SCH (10:00)
--- NOTE | 2020-01-24 12:18 | P.PN ---
Subjective Progress Note Date: 01/24/20 This is an 84-year-old female with history of left hip severe osteoarthritis, status post left total hip arthroplasty in a patient with past medical history of breast cancer, hyperlipidemia, hypertension, osteoarthritis, former smoker, anxiety, multiple other medical issues. Just returned back ,tolerated procedure well. Currently denies pain. Denies chest pain, palpitations or shortness of breath. Hard of hearing, does not have her hearing aids in. Labs from 01/14/2020 reported sodium 126, potassium 5.5. 01/23/2020 postop day #1. Upon ambulating with PT in hallway and again to bathroom, developed dizziness, relieved with rest. Hemoglobin 9.1, prior hemoglobin in July 2019 11.5. Estimated blood loss 200 MLS with 65 MLS returned with Cell Saver reported. Reports that she did not sleep well, did not like breakfast, therefore no intake this morning. Passing flatus. Pain controlled. Sodium up to 128. Denies chest pain, palpitations or shortness of breath. 01/24/2020 significant clinical improvement. Slept well. No further dizziness. Ambulating, tolerated exertion well. Pain controlled, passing flatus. Sodium continues to improve, up to 133, hemoglobin 8.5. Denies chest pain, palpitations or shortness of breath. Objective - Vital Signs Vital signs: Vital Signs Temp 98.2 F 01/24/20 07:40 Pulse 74 01/24/20 07:40 Resp 16 01/24/20 07:40 BP 167/70 01/24/20 07:40 Pulse Ox 95 01/24/20 07:40 Intake & Output 01/23/20 01/24/20 01/24/20 18:59 06:59 18:59 Other: Voiding Method Toilet Toilet # Voids 2 1 2 - Exam VITAL SIGNS: As above GENERAL: Alert and oriented 3, Sitting up in chair, NAD HEENT: Conjunctivae normal. eyes normal. Oral mucosa moist CARDIOVASCULAR: S1, S2 regular. No murmur RESPIRATION: Breath sounds CTA. ABDOMEN: Soft, nontender . No guarding. Positive Bowel sounds. EXTREMITIES: Left hip dressing clean dry and intact, minimal edema, Positive PT,DP pulses NERVOUS SYSTEM: Cranial N 2-12 grossly normal. Moves all 4 limbs. No focal deficits. Strength and sensation grossly intact. Skin: Warm and dry, no rash - Labs CBC & Chem 7: 01/24/20 05:50 01/24/20 05:50 Labs: Abnormal Lab Results - Last 24 Hours (Table) 01/23/20 01/24/20 01/24/20 Range/Units 05:18 05:50 05:50 RBC 2.66 L (3.80-5.40) m/uL Hgb 8.5 L (11.4-16.0) gm/dL Hct 26.4 L (34.0-46.0) % Sodium 131 L 133 L (135-145) mmol/L Est GFR (CKD-EPI)AfAm 59.9 L (60.0-200.0) Est GFR (CKD-EPI)NonAf 51.7 L (60.0-200.0) BUN/Creatinine Ratio 25.00 H 21.43 H (12.00-20.00) Ratio Calcium 8.2 L 7.8 L (8.7-10.3) mg/dL Assessment and Plan Assessment: Severe osteoarthritis of left hip, failed conservative management ,status post left total hip arthroplasty with direct anterior approach Hyponatremia, from labs of 01/14/2020, BMP pending, improving Hyperkalemia, from labs of 01/14/2020, BMP pending, resolved Hypertension Hyperlipidemia History of breast cancer Former nicotine dependence Hospital course: Continue medication regime ,monitoring and symptomatic treatmen t. Significant clinical improvement. Patient is being discharged home orthopedic surgery. Continue outpatient with aggressive pulmonary toileting with incentive spirometer reinforced. PT/Pain management/ anticoagulation as per orthopedic surgery. Follow-up with PCP in 1-2 weeks. Follow-up CBC BMP OP. The impression and plan of care has been dictated as directed. : I performed a history and examination of this patient, discussed the same with the dictator. I agree with the dictator's note ,documented as a scribe. Any additional findings or plans will be noted.
== END 2020-01-24 13:05 | disposition home health service (06) ==
LOC: OR 08:01 → 4SSUR 11:29 → OR 01-24 13:05
PROVIDERS: ATTEND Orthopaedic Surgery
DX: M16.12 Unilateral primary osteoarthritis, left hip (principal); M25.752 Osteophyte, left hip; I10 Essential (primary) hypertension; G57.61 Lesion of plantar nerve, right lower limb; F41.9 Anxiety disorder, unspecified; E78.5 Hyperlipidemia, unspecified; E87.5 Hyperkalemia; E87.1 Hypo-osmolality and hyponatremia; H91.90 Unspecified hearing loss, unspecified ear; E06.3 Autoimmune thyroiditis; Z88.7 Allergy status to serum and vaccine; Z88.2 Allergy status to sulfonamides; Z91.041 Radiographic dye allergy status; Z98.890 Other specified postprocedural states; Z85.3 Personal history of malignant neoplasm of breast; Z87.891 Personal history of nicotine dependence; Z98.51 Tubal ligation status; Z98.49 Cataract extraction status, unspecified eye; Z79.1 Long term (current) use of non-steroidal anti-inflammatories (NSAID); Z79.899 Other long term (current) drug therapy; Z92.3 Personal history of irradiation
CPT/HCPCS: 27130; 97116; 97110; 97161; 97535 ×2; 97166; 86891; 88305; 80048 ×3; 85025 ×2; 88311; 73501 ×2; C1776; J2250; J0171; J1644; J1100; J0690 ×3; J2405; J1885; J2795; J2704; J0735; C9113 ×2; J1170; 36415; 80053; 81003; 85610; 85730; 86850; 86900; 86901

== ENCOUNTER 2020-01-25 18:29 | Inpatient (IN) | payer MEDICARE, BC ==
[2020-01-25 18:34] LABS: Glucose,Whole Blood 82 mg/dL (75-99)
[2020-01-25] MEDS ORDERED: SODIUM CHLORIDE 0.9% 500 ML 500 ML IV STA (19:02)
[2020-01-25] MEDS ORDERED: SODIUM CHLORIDE 0.9% 500 ML 500 ML IV ONE (19:20)
[2020-01-25] MEDS ORDERED: HYDROmorphone 0.5 MG/0.5 ML SYRINGE IVP STA (19:20)
--- NOTE | 2020-01-25 19:22 | ED ---
General Adult HPI - General Source: patient, EMS, RN notes reviewed, old records reviewed Mode of arrival: EMS Limitations: physical limitation <Jluis Browne - Last Filed: 01/25/20 20:46> <Jluis Martinez - Last Filed: 01/25/20 22:08> - General Chief complaint: Syncope Stated complaint: Syncope Time Seen by Provider: 01/25/20 19:02 - History of Present Illness Initial comments: 84-year-old female presents for evaluation after syncopal episode while using the restroom. Patient was attempting to have a bowel movement and fainted. She denies any injury. She is 3 days postop left hip replacement. She denies preceding nausea vomiting. No chest pain. She reports mild dyspnea. No fevers. She states she has been unable to have a bowel movement. She is currently taking Steger for pain. She denies dysuria or hematuria. (Jluis Browne) - Related Data Home Medications Medication Instructions Recorded Confirmed Meloxicam [Mobic] 7.5 mg PO DAILY 12/27/13 01/22/20 Simvastatin [Zocor] 10 mg PO HS 12/27/13 01/22/20 Calcium Carbonate [Calcium] 600 mg PO DAILY 01/15/20 01/22/20 Cholecalciferol [Vitamin D3 (25 2,000 unit PO DAILY 01/15/20 01/22/20 Mcg = 1000 Iu)] Gabapentin [Neurontin] 600 mg PO BID 01/15/20 01/22/20 Glucosamine/Chondr Lopez A Sod [Osteo 1 each PO DAILY 01/15/20 01/22/20 Bi-Flex Caplet] Losartan Potassium [Cozaar] 100 mg PO DAILY 01/15/20 01/22/20 Magnesium Oxide [Mag-Oxide] 200 mg PO HS 01/15/20 01/22/20 Ubidecarenone [Co Q-10] 100 mg PO DAILY 01/15/20 01/22/20 traMADol HCL [Ultram] 50 mg PO Q6HR PRN 01/15/20 01/22/20 Previous Rx's Medication Instructions Recorded Aspirin 325 mg PO BID #60 tab 01/24/20 HYDROcodone/APAP 5-325MG [[place] 1 - 2 tab PO Q6HR PRN #48 tab 01/24/20 5-325] Sennosides [Senokot] 2 tab PO DAILY PRN #60 tablet 01/24/20 Allergies Allergy/AdvReac Type Severity Reaction Status Date / Time influenza virus vaccine qs Allergy Anaphylaxis Verified 01/25/20 21:58 [From Single Use EZ Flu] Iodinated Contrast Media Allergy Unknown Verified 01/25/20 21:58 [Iodinated Contrast Media - IV Dye] Sulfa (Sulfonamide Allergy Nausea & Verified 01/25/20 21:58 Antibiotics) Vomiting Review of Systems ROS Other: All systems not noted in ROS Statement are negative. <Jluis Browne - Last Filed: 01/25/20 20:46> ROS Other: All systems not noted in ROS Statement are negative. <Jluis Martinez - Last Filed: 01/25/20 22:08> ROS Statement: Those systems with pertinent positive or pertinent negative responses have been documented in the HPI. Past Medical History Past Medical History: Cancer, Hyperlipidemia, Hypertension, Osteoarthritis (OA) Additional Past Medical History / Comment(s): breast cancer History of Any Multi-Drug Resistant Organisms: None Reported Past Surgical History: Orthopedic Surgery Additional Past Surgical History / Comment(s): left hip replacement, left lumpectomy. Past Psychological History: No Psychological Hx Reported Smoking Status: Never smoker Past Alcohol Use History: Occasional Past Drug Use History: None Reported <Jluis Browne - Last Filed: 01/25/20 20:46> General Exam Limitations: physical limitation General appearance: alert, in no apparent distress Head exam: Present: atraumatic, normocephalic Eye exam: Present: normal appearance, PERRL ENT exam: Present: mucous membranes dry Neck exam: Present: normal inspection. Absent: tenderness, meningismus Respiratory exam: Present: normal lung sounds bilaterally. Absent: respiratory distress, wheezes Cardiovascular Exam: Present: regular rate, normal rhythm GI/Abdominal exam: Present: soft. Absent: distended, tenderness, guarding Extremities exam: Present: normal capillary refill, other (incision no erythema, intact, well-healed). Absent: pedal edema Neurological exam: Present: alert, oriented X3, CN II-XII intact. Absent: motor sensory deficit Psychiatric exam: Present: normal affect, normal mood Skin exam: Present: warm, dry <Jluis Browne - Last Filed: 01/25/20 20:46> Course <Jluis Browne - Last Filed: 01/25/20 20:46> Vital Signs 01/25/20 01/25/20 01/25/20 18:31 20:30 20:40 Temperature 98.2 F Pulse Rate 90 18 L Respiratory 18 18 18 Rate Blood Pressure 110/70 107/31 O2 Sat by Pulse 98 97 Oximetry - Reevaluation(s) Reevaluation #1: 01/25/20 2100 patient care signed out to Dr. Martinez at shift change awaiting workup and reevaluation. (Jluis Browne) EKG Findings - EKG Comments: EKG Findings:: EKG: Normal sinus rhythm, low voltage, rate of 87, [place] interval 200, QRS duration 78, QTC 425, no ST segment elevation. <Jluis Browne - Last Filed: 01/25/20 20:46> Medical Decision Making - Lab Data Result diagrams: 01/25/20 19:27 01/25/20 19:27 <Jluis Browne - Last Filed: 01/25/20 20:46> - Lab Data Result diagrams: 01/25/20 19:27 01/25/20 19:27 - Radiology Data Radiology results: report reviewed (I did review the imaging and report no acute findings), image reviewed <Jluis Martinez - Last Filed: 01/25/20 22:08> - Medical Decision Making The patient was endorsed me at shift change by Dr. Browne pending CT results. CT the brain and chest are negative for acute processes no evidence of PE. I did discuss the findings with the patient and her patient is demonstrating some cognitive difficulties after getting IV pain medication. The patient also demonstrates hyponatremia 133 yesterday 125 sodium today. I did discuss the case with Dr. Rome. Patient be admitted for observation for a vasovagal syncopal episode as well as hyponatremia. Also medication reaction (Jluis Martinez) - Lab Data Lab Results 01/25/20 01/25/20 01/25/20 Range/Units 18:33 19:27 19:27 WBC 11.8 H (3.8-10.6) k/uL RBC 3.02 L (3.80-5.40) m/uL Hgb 9.7 L (11.4-16.0) gm/dL Hct 29.9 L (34.0-46.0) % MCV 98.9 (80.0-100.0) fL MCH 32.2 (25.0-35.0) pg MCHC 32.6 (31.0-37.0) g/dL RDW 12.2 (11.5-15.5) % Plt Count 193 (150-450) k/uL Neutrophils % 85 % Lymphocytes % 9 % Monocytes % 3 % Eosinophils % 2 % Basophils % 0 % Neutrophils # 10.0 H (1.3-7.7) k/uL Lymphocytes # 1.1 (1.0-4.8) k/uL Monocytes # 0.3 (0-1.0) k/uL Eosinophils # 0.3 (0-0.7) k/uL Basophils # 0.1 (0-0.2) k/uL PT 9.3 (9.0-12.0) sec INR 0.9 (<1.2) APTT 19.8 L (22.0-30.0) sec Sodium (137-145) mmol/L Potassium (3.5-5.1) mmol/L Chloride (98-107) mmol/L Carbon Dioxide (22-30) mmol/L Anion Gap mmol/L BUN (7-17) mg/dL Creatinine (0.52-1.04) mg/dL Est GFR (CKD-EPI)AfAm (>60 ml/min/1.73 sqM) Est GFR (CKD-EPI)NonAf (>60 ml/min/1.73 sqM) Glucose (74-99) mg/dL POC Glucose (mg/dL) 82 (75-99) mg/dL POC Glu [employer] Supervisor ID Ama Lim Calcium (8.4-10.2) mg/dL Magnesium (1.6-2.3) mg/dL Total Bilirubin (0.2-1.3) mg/dL AST (14-36) U/L ALT (4-34) U/L Alkaline Phosphatase (38-126) U/L Troponin I (0.000-0.034) ng/mL Total Protein (6.3-8.2) g/dL Albumin (3.5-5.0) g/dL Urine Color Urine Appearance (Clear) Urine pH (5.0-8.0) Ur Specific [place] (1.001-1.035) Urine Protein (Negative) Urine Glucose (UA) (Negative) Urine Ketones (Negative) Urine Blood (Negative) Urine Nitrite (Negative) Urine Bilirubin (Negative) Urine Urobilinogen (<2.0) mg/dL Ur Leukocyte Esterase (Negative) Urine RBC (0-5) /hpf Urine WBC (0-5) /hpf Ur Squamous Epith Cells (0-4) /hpf Urine Bacteria (None) /hpf Hyaline Casts (0-2) /lpf 01/25/20 01/25/20 01/25/20 Range/Units 19:27 19:27 19:27 WBC (3.8-10.6) k/uL RBC (3.80-5.40) m/uL Hgb (11.4-16.0) gm/dL Hct (34.0-46.0) % MCV (80.0-100.0) fL MCH (25.0-35.0) pg MCHC (31.0-37.0) g/dL RDW (11.5-15.5) % Plt Count (150-450) k/uL Neutrophils % % Lymphocytes % % Monocytes % % Eosinophils % % Basophils % % Neutrophils # (1.3-7.7) k/uL Lymphocytes # (1.0-4.8) k/uL Monocytes # (0-1.0) k/uL Eosinophils # (0-0.7) k/uL Basophils # (0-0.2) k/uL PT (9.0-12.0) sec INR (<1.2) APTT (22.0-30.0) sec Sodium 125 L (137-145) mmol/L Potassium 4.7 (3.5-5.1) mmol/L Chloride 98 (98-107) mmol/L Carbon Dioxide 22 (22-30) mmol/L Anion Gap 5 mmol/L BUN 18 H (7-17) mg/dL Creatinine 0.88 (0.52-1.04) mg/dL Est GFR (CKD-EPI)AfAm 70 (>60 ml/min/1.73 sqM) Est GFR (CKD-EPI)NonAf 61 (>60 ml/min/1.73 sqM) Glucose 128 H (74-99) mg/dL POC Glucose (mg/dL) (75-99) mg/dL POC Glu [employer] Supervisor ID Calcium 9.4 (8.4-10.2) mg/dL Magnesium 2.5 H (1.6-2.3) mg/dL Total Bilirubin 0.8 (0.2-1.3) mg/dL AST 68 H (14-36) U/L ALT 19 (4-34) U/L Alkaline Phosphatase 203 H (38-126) U/L Troponin I <0.012 (0.000-0.034) ng/mL Total Protein 5.1 L (6.3-8.2) g/dL Albumin 2.9 L (3.5-5.0) g/dL Urine Color Yellow Urine Appearance Turbid H (Clear) Urine pH 5.5 (5.0-8.0) Ur Specific [place] 1.042 H (1.001-1.035) Urine Protein Trace H (Negative) Urine Glucose (UA) Negative (Negative) Urine Ketones Negative (Negative) Urine Blood Small H (Negative) Urine Nitrite Negative (Negative) Urine Bilirubin Negative (Negative) Urine Urobilinogen 2.0 (<2.0) mg/dL Ur Leukocyte Esterase Negative (Negative) Urine RBC 5 (0-5) /hpf Urine WBC 1 (0-5) /hpf Ur Squamous Epith Cells <1 (0-4) /hpf Urine Bacteria Rare H (None) /hpf Hyaline Casts 25 H (0-2) /lpf Disposition <Jluis Browne - Last Filed: 01/25/20 20:46> <Jluis Martinez - Last Filed: 01/25/20 22:08> Clinical Impression: Vasovagal syncope, Hyponatremia, Medication reaction, Acute confusional state Disposition: ADMITTED IP TO THIS HOSP Condition: Fair Referrals: Tyson Rome MD [Primary Care Provider] - 1-2 days
[2020-01-25 19:33] LABS: Basophils # (A) 0.1 k/uL (0-0.2); Basophils % (A) 0 %; Eosinophils # (A) 0.3 k/uL (0-0.7); Eosinophils % (A) 2 %; HCT 29.9 % (34.0-46.0); HGB 9.7 gm/dL (11.4-16.0); Lymphocytes # (A) 1.1 k/uL (1.0-4.8); Lymphocytes % (A) 9 %; MCH 32.2 pg (25.0-35.0); MCHC 32.6 g/dL (31.0-37.0); MCV 98.9 fL (80.0-100.0); Mean Platelet Volume 7.6; Monocytes # (A) 0.3 k/uL (0-1.0); Monocytes % (A) 3 %; Neutrophils % (A) 85 %; Platelet Count 193 k/uL (150-450); RBC 3.02 m/uL (3.80-5.40); RDW 12.2 % (11.5-15.5); WBC 11.8 k/uL (3.8-10.6)
[2020-01-25 19:44] LABS: Albumin 2.9 g/dL (3.5-5.0); Calcium 9.4 mg/dL (8.4-10.2); Magnesium 2.5 mg/dL (1.6-2.3); Potassium 4.7 mmol/L (3.5-5.1); Total Bilirubin 0.8 mg/dL (0.2-1.3); Total Protein 5.1 g/dL (6.3-8.2)
[2020-01-25 19:48] LABS: INR 0.9 (<1.2); Prothrombin Time 9.3 sec (9.0-12.0)
[2020-01-25 19:49] LABS: Partial Thromboplastin Time 19.8 sec (22.0-30.0)
[2020-01-25] MEDS ORDERED: diphenhydrAMINE 50 MG/ML 1 ML VIAL IVP STA (19:51)
[2020-01-25] MEDS ORDERED: FAMOTIDINE 20 MG/2 ML VIAL IV STA (19:51)
[2020-01-25] MEDS ORDERED: methylPREDNISolone SOD SUCCI 125 MG/2 ML VIAL IV STA (19:51)
--- NOTE | 2020-01-25 20:22 | XR ---
EXAMINATION TYPE: XR chest 2V DATE OF EXAM: 01/25/2020 COMPARISON: 10/17/2019 HISTORY: Syncope TECHNIQUE: FINDINGS: Heart and mediastinum are normal. Lungs are clear. Diaphragm is normal. Bony thorax is inta ct. IMPRESSION: Normal chest. No change.
--- NOTE | 2020-01-25 20:23 | XR ---
EXAMINATION TYPE: XR pelvis AP view DATE OF EXAM: 01/25/2020 COMPARISON: NONE HISTORY: Abdominal pain TECHNIQUE: FINDINGS: There is left hip prosthesis. There is spurring of the right acetabulum and right femoral h ead. Pelvic ring is intact. Sacroiliac joints are intact. IMPRESSION: No acute abnormality the pelvis. Osteoarthritis in the right hip joint.
--- NOTE | 2020-01-25 20:24 | XR ---
EXAMINATION TYPE: XR KUB DATE OF EXAM: 01/25/2020 COMPARISON: NONE HISTORY: Pain TECHNIQUE: 2 views supine FINDINGS: There is no sign of intestinal obstruction or pneumoperitoneum. Fecal pattern is normal. Th ere is left hip prosthesis. Lung bases are clear. There are no pathologic calcifications over the kid neys. IMPRESSION: Nonacute abdomen.
[2020-01-25] MEDS ORDERED: NALOXONE 0.4 MG/ML 1 ML VIAL IVP STA (20:39)
--- NOTE | 2020-01-25 21:07 | CT ---
EXAMINATION TYPE: CT angio chest DATE OF EXAM: 01/25/2020 COMPARISON: None HISTORY: Syncopal episode. CT DLP: 272.7 mGycm Automated exposure control for dose reduction was used. CONTRAST: Performed with IV Contrast, patient injected with 80ml mL of Isovue 370. There are 3-D post processed images. There is mild subsegmental atelectasis right lung base. Heart size is normal. There is no pericardial effusion. There is no pleural effusion. There are no hilar masses. There is no mediastinal adenopath y. Thoracic aorta is intact. There is no aneurysm or dissection. The ascending aorta measures 3.3 cm. There is normal contrast opacification of the pulmonary arteries. There are no filling defects. Upper abdominal soft tissues are intact. Bony thorax appears intact. IMPRESSION: Minimal subsegmental atelectasis. No evidence of pulmonary embolism.
--- NOTE | 2020-01-25 21:09 | CT ---
EXAMINATION TYPE: CT brain wo con DATE OF EXAM: 01/25/2020 COMPARISON: 10/03/2012 HISTORY: Syncopal episode. CT DLP: 1064 mGycm Automated exposure control for dose reduction was used. There is mild cerebral cortical atrophy. There is no mass effect nor midline shift. There is no sign of intracranial hemorrhage. Calvarium is intact. There is no evidence of cerebral edema. Skull base i s intact. IMPRESSION: Negative CT scan of the brain. No change.
[2020-01-25 21:49] LABS: Appearance,Urine Turbid (Clear); Bacteria,Urine Rare /hpf; Bilirubin,Urine Negative (Negative); Blood,Urine Small (Negative); Color,Urine Yellow; Glucose,Urine (UA) Negative (Negative); Hyaline Casts,Urine 25 /lpf (0-2); Ketones,Urine Negative (Negative); Leukocyte Esterase,Urine Negative (Negative); Nitrite,Urine Negative (Negative); PH, Urine 5.5 (5.0-8.0); Protein,Urine Trace (Negative); RBC,Urine 5 /hpf (0-5); Specific Gravity,Urine 1.042 (1.001-1.035); Squamous Epithelial Cell,Urine <1 /hpf (0-4); WBC,Urine 1 /hpf (0-5)
[2020-01-25] MEDS ORDERED: ACETAMINOPHEN TAB 325 MG TAB PO PRN (22:09)
[2020-01-25] MEDS ORDERED: NALOXONE 0.4 MG/ML 1 ML VIAL IV PRN (22:09)
[2020-01-25] MEDS ORDERED: SODIUM CHLORIDE 0.9% 1,000 ML IV SCH (22:15)
[2020-01-25] MEDS ORDERED: SENNOSIDES 8.6 MG TAB PO PRN (23:30)
[2020-01-26 08:49] LABS: ALT 24 U/L (4-34); AST 73 U/L (14-36); African American GFR (CKD) 84 (>60 ml/min/1.73 sqM); Albumin 2.8 g/dL (3.5-5.0); Albumin/Globulin Ratio 1.2; Alkaline Phosphatase 368 U/L (38-126); Anion Gap 8 mmol/L; Blood Urea Nitrogen 20 mg/dL (7-17); Calcium 8.4 mg/dL (8.4-10.2); Carbon Dioxide 18 mmol/L (22-30); Chloride 101 mmol/L (98-107); Globulin 2.3 g/dL; Glucose 158 mg/dL (74-99); Non-African American GFR(CKD) 73 (>60 ml/min/1.73 sqM); Sodium 127 mmol/L (137-145); Total Bilirubin 0.9 mg/dL (0.2-1.3); Total Protein 5.1 g/dL (6.3-8.2)
[2020-01-26 08:59] LABS: Potassium 5.1 mmol/L (3.5-5.1)
[2020-01-26] MEDS ORDERED: CALCIUM CARBONATE 500 MG CHEWABLE PO SCH (09:00)
[2020-01-26] MEDS ORDERED: ASPIRIN 325 MG TAB PO SCH (09:00)
[2020-01-26] MEDS ORDERED: CHOLECALCIFEROL 1,000 UNIT TAB PO SCH (09:00)
[2020-01-26] MEDS ORDERED: GABAPENTIN 300 MG CAP PO SCH (09:00)
[2020-01-26] MEDS ORDERED: NON FORMULARY DRUG (Glucosamine/Chondr Su A Sod [Osteo Bi-Flex Caplet] 1 EACH Tablet) PO SCH (09:00)
[2020-01-26] MEDS ORDERED: MELOXICAM 7.5 MG TAB PO SCH (09:00)
[2020-01-26] MEDS ORDERED: LOSARTAN 50 MG TAB PO SCH (09:00)
[2020-01-26] MEDS ORDERED: NON FORMULARY DRUG (Ubidecarenone [Co Q-10] 100 MG Capsule) PO SCH (09:00)
--- NOTE | 2020-01-26 11:15 | P.HPIM ---
History of Present Illness H&P Date: 01/26/20 Chief Complaint: syncope This is an 84-year-old female patient known to me. She underwent a left total hip arthroplasty with Dr. Sherman Navarro on 01/22/2020. She went home on January 23. Last night while having a bowel movement she had a loss of consciousness. She denied any chest pains, pressures, shortness breath, nausea, or vomiting. She did not strike her head and denies any significant injuries. She did NOT fall off the toilet and her was in attendacnce the whole time. In the emergency room, before discharge, she was given Dilaudid for hip pain. After that, she became very confused and was felt she be unsafe for discharge home. She has a new history of hyponatremia. In the ER last night her sodium was 125. It was 133 on January 19. Sodium this morning was 127. Previous hemoglobin before her surgery was 11.6. Postoperatively hemoglobin was 9.5. Currently it is 9.7. She continues to deny any chest pains compression, short of breath, nausea, vomiting, dizziness, lightheadedness. She c/o abdominal pain and had frequent stools since arriving. Review of Systems All systems: negative Past Medical History Past Medical History: Blood Disorder (anemia from surgery), Cancer (breast), Hyperlipidemia, Hypertension, Osteoarthritis (OA) Additional Past Medical History / Comment(s): hyponatremia History of Any Multi-Drug Resistant Organisms: None Reported Past Surgical History: Orthopedic Surgery Additional Past Surgical History / Comment(s): left hip replacement 01/22/2020, left lumpectomy. Past Anesthesia/Blood Transfusion Reactions: No Reported Reaction Past Psychological History: No Psychological Hx Reported Smoking Status: Never smoker Past Alcohol Use History: Unable to Obtain Past Drug Use History: None Reported Medications and Allergies Home Medications Medication Instructions Recorded Confirmed Type Meloxicam [Mobic] 7.5 mg PO DAILY 12/27/13 01/25/20 History Simvastatin [Zocor] 10 mg PO HS 12/27/13 01/25/20 History Calcium Carbonate [Calcium] 600 mg PO DAILY 01/15/20 01/25/20 History Cholecalciferol [Vitamin D3 (25 2,000 unit PO DAILY 01/15/20 01/25/20 History Mcg = 1000 Iu)] Gabapentin [Neurontin] 600 mg PO BID 01/15/20 01/25/20 History Glucosamine/Chondr Lopez A Sod [Osteo 1 each PO DAILY 01/15/20 01/25/20 History Bi-Flex Caplet] Losartan Potassium [Cozaar] 100 mg PO DAILY 01/15/20 01/25/20 History Magnesium Oxide [Mag-Oxide] 200 mg PO HS 01/15/20 01/25/20 History Ubidecarenone [Co Q-10] 100 mg PO DAILY 01/15/20 01/25/20 History traMADol HCL [Ultram] 50 mg PO Q6HR PRN 01/15/20 01/25/20 History Aspirin 325 mg PO BID #60 tab 01/24/20 01/25/20 Rx HYDROcodone/APAP 5-325MG [[place] 1 - 2 tab PO Q6HR PRN #48 tab 01/24/20 01/25/20 Rx 5-325] Sennosides [Senokot] 2 tab PO DAILY PRN #60 tablet 01/24/20 01/25/20 Rx Allergies Allergy/AdvReac Type Severity Reaction Status Date / Time influenza virus vaccine qs Allergy Anaphylaxis Verified 01/25/20 22:11 [From Single Use EZ Flu] Iodinated Contrast Media Allergy Unknown Verified 01/25/20 22:11 [Iodinated Contrast Media - IV Dye] Sulfa (Sulfonamide Allergy Nausea & Verified 01/25/20 22:11 Antibiotics) Vomiting Physical Exam Vitals: Vital Signs Temp Pulse Pulse Resp BP BP Pulse Ox 01/26/20 07:00 98.4 F 87 16 132/58 95 01/26/20 01:25 97.6 F 64 18 123/69 96 01/26/20 00:07 18 01/25/20 22:54 98.7 F 80 18 100/69 100 01/25/20 20:40 18 01/25/20 20:30 18 L 18 107/31 97 01/25/20 18:31 98.2 F 90 18 110/70 98 Intake and Output 01/25/20 01/26/20 01/26/20 22:59 06:59 14:59 Other: Voiding Method Bedpan Diaper Incontinent # Voids 1 # Bowel Movements 4 Weight 60.781 kg 60.781 kg GENERAL: Pleasant and thin octogenarian in no acute distress. HEAD: Atraumatic, normocephalic. EYES: Pupils equal round and reactive to light, extraocular movements intact, sclera anicteric, conjunctiva are normal. ENT:nares patent, oropharynx clear without exudates. Moist mucous membranes. NECK: Normal range of motion, supple without lymphadenopathy or JVD, no thyromegaly LUNGS: Breath sounds clear to auscultation bilaterally and equal. No wheezes rales or rhonchi. HEART: Regular rate and rhythm without murmurs, rubs or gallops.S1S2 Normal ABDOMEN: Soft, normoactive bowel sounds. No guarding, no rebound. No masses appreciated. pain to mid abdomen mild distention noted EXTREMITIES: Normal range of motion, no pitting or edema. No clubbing or cyanosis. NEUROLOGICAL: Cranial nerves II through XII grossly intact. Normal speech, normal gait. PSYCH: Normal mood, normal affect. SKIN: Warm, Dry, normal turgor, no rashes or lesions noted. Results CBC & Chem 7: 01/25/20 19:27 01/26/20 06:23 Labs: Abnormal Lab Results - Last 24 Hours (Table) 01/25/20 01/25/20 01/25/20 Range/Units 19:27 19:27 19:27 WBC 11.8 H (3.8-10.6) k/uL RBC 3.02 L (3.80-5.40) m/uL Hgb 9.7 L (11.4-16.0) gm/dL Hct 29.9 L (34.0-46.0) % Neutrophils # 10.0 H (1.3-7.7) k/uL APTT 19.8 L (22.0-30.0) sec Sodium 125 L (137-145) mmol/L Carbon Dioxide (22-30) mmol/L BUN 18 H (7-17) mg/dL Glucose 128 H (74-99) mg/dL Magnesium 2.5 H (1.6-2.3) mg/dL AST 68 H (14-36) U/L Alkaline Phosphatase 203 H (38-126) U/L Total Protein 5.1 L (6.3-8.2) g/dL Albumin 2.9 L (3.5-5.0) g/dL Urine Appearance (Clear) Ur Specific [place] (1.001-1.035) Urine Protein (Negative) Urine Blood (Negative) Urine Bacteria (None) /hpf Hyaline Casts (0-2) /lpf 01/25/20 01/26/20 Range/Units 19:27 06:23 WBC (3.8-10.6) k/uL RBC (3.80-5.40) m/uL Hgb (11.4-16.0) gm/dL Hct (34.0-46.0) % Neutrophils # (1.3-7.7) k/uL APTT (22.0-30.0) sec Sodium 127 L (137-145) mmol/L Carbon Dioxide 18 L (22-30) mmol/L BUN 20 H (7-17) mg/dL Glucose 158 H (74-99) mg/dL Magnesium (1.6-2.3) mg/dL AST 73 H (14-36) U/L Alkaline Phosphatase 368 H (38-126) U/L Total Protein 5.1 L (6.3-8.2) g/dL Albumin 2.8 L (3.5-5.0) g/dL Urine Appearance Turbid H (Clear) Ur Specific [place] 1.042 H (1.001-1.035) Urine Protein Trace H (Negative) Urine Blood Small H (Negative) Urine Bacteria Rare H (None) /hpf Hyaline Casts 25 H (0-2) /lpf Comments: Pelvis x-ray reviewed no acute fracture Chest x-ray: report reviewed Abdominal x-ray: report reviewed CT scan - chest: report reviewed CT Scan - head: report reviewed Thrombosis Risk Factor Assmnt - DVT/VTE Prophylaxis DVT/VTE Prophylaxis: Pharmacologic Prophylaxis ordered - Choose All That Apply Each Factor Represents 1 point: History of prior major surgery (<1month), Medical pt on bed rest Other Risk Factors: Yes Each Risk Factor Represents 3 Points: Age 75 years or older Thrombosis Risk Factor Assessment Total Risk Factor Score: 5 Thrombosis Risk Factor Assessment Level: High Risk Assessment and Plan (1) Vasovagal syncope Current Visit: Yes Status: Acute Code(s): R55 - SYNCOPE AND COLLAPSE SNOMED Code(s): 488421924 (2) Blood loss anemia Current Visit: Yes Status: Acute Code(s): D50.0 - IRON DEFICIENCY ANEMIA SECONDARY TO BLOOD LOSS (CHRONIC) SNOMED Code(s): 040843799 (3) Blood loss, postoperative Current Visit: Yes Status: Acute Code(s): EFM5719 - SNOMED Code(s): 744742474 (4) Acute confusional state Current Visit: Yes Status: Acute Code(s): F05 - DELIRIUM DUE TO KNOWN PHYSIOLOGICAL CONDITION SNOMED Code(s): 2758245 (5) Hyponatremia Current Visit: Yes Status: Acute Code(s): E87.1 - HYPO-OSMOLALITY AND HYPONATREMIA SNOMED Code(s): 03364098 (6) Medication reaction Current Visit: Yes Status: Acute Code(s): T50.905A - ADVERSE EFFECT OF UNSP DRUG/MEDS/BIOL SUBST, INIT SNOMED Code(s): 42564395 (7) S/P total hip arthroplasty Current Visit: No Status: Acute Code(s): Z96.649 - PRESENCE OF UNSPECIFIED ARTIFICIAL HIP JOINT SNOMED Code(s): 107582846317 (8) Diarrhea Current Visit: Yes Status: Acute Code(s): R19.7 - DIARRHEA, UNSPECIFIED SNOMED Code(s): 71996912 Plan: A repeat flat plate x-ray this morning. Check C. difficile colitis Monitor her oral intake. Her mentation is cleared up and she appears to be back to her normal self, if this remains an testing is normal, she can be discharged this afternoon.
--- NOTE | 2020-01-26 11:19 | P.DS ---
Providers Date of admission: 01/26/20 10:57 Attending physician: Tyson Rome Primary care physician: Tyson Rome - Discharge Diagnosis(es) (1) Vasovagal syncope Current Visit: Yes Status: Acute (2) Blood loss anemia Current Visit: Yes Status: Acute (3) Blood loss, postoperative Current Visit: Yes Status: Acute (4) Acute confusional state Current Visit: Yes Status: Acute (5) Hyponatremia Current Visit: Yes Status: Acute (6) Medication reaction Current Visit: Yes Status: Acute (7) S/P total hip arthroplasty Current Visit: No Status: Acute (8) Diarrhea Current Visit: Yes Status: Acute Hospital Course: This is an 84-year-old female patient known to me. She underwent a left total hip arthroplasty with Dr. Sherman Navarro on 01/22/2020. She went home on January 23. Last night while having a bowel movement she had a loss of consciousness. She denied any chest pains, pressures, shortness breath, nausea, or vomiting. She did not strike her head and denies any significant injuries. She did NOT fall off the toilet and her was in attendacnce the whole time. In the emergency room, before discharge, she was given Dilaudid for hip pain. After that, she became very confused and was felt she be unsafe for discharge home. She has a new history of hyponatremia. In the ER last night her sodium was 125. It was 133 on January 19. Sodium this morning was 127. Previous hemoglobin before her surgery was 11.6. Postoperatively hemoglobin was 9.5. Currently it is 9.7. She continues to deny any chest pains compression, short of breath, nausea, vomiting, dizziness, lightheadedness. She c/o abdominal pain and had frequent stools since arriving. While in the hospital she received IV fluids and received naloxone. Her mentation resolved. She continued to have abdominal pain and diarrhea. Abdominal x-ray was essentially normal and C. difficile was negative. She was then discharged home later in the afternoon Patient Condition at Discharge: Fair Plan - Discharge Summary Discharge Rx Participant: Yes New Discharge Prescriptions: New Acetaminophen Tab [Tylenol] 650 mg PO Q6HR PRN tab PRN Reason: Mild Pain Or Fever > 100.5 Continue Simvastatin [Zocor] 10 mg PO HS Meloxicam [Mobic] 7.5 mg PO DAILY Losartan Potassium [Cozaar] 100 mg PO DAILY traMADol HCL [Ultram] 50 mg PO Q6HR PRN PRN Reason: Pain Gabapentin [Neurontin] 600 mg PO BID Cholecalciferol [Vitamin D3 (25 Mcg = 1000 Iu)] 2,000 unit PO DAILY Ubidecarenone [Co Q-10] 100 mg PO DAILY Magnesium Oxide [Mag-Oxide] 200 mg PO HS Glucosamine/Chondr Lopez A Sod [Osteo Bi-Flex Caplet] 1 each PO DAILY Calcium Carbonate [Calcium] 600 mg PO DAILY Aspirin 325 mg PO BID #60 tab HYDROcodone/APAP 5-325MG [[place] 5-325] 1 - 2 tab PO Q6HR PRN #48 tab PRN Reason: Pain Sennosides [Senokot] 2 tab PO DAILY PRN #60 tablet PRN Reason: Constipation Discharge Medication List Meloxicam [Mobic] 7.5 mg PO DAILY 12/27/13 [History] Simvastatin [Zocor] 10 mg PO HS 12/27/13 [History] Calcium Carbonate [Calcium] 600 mg PO DAILY 01/15/20 [History] Cholecalciferol [Vitamin D3 (25 Mcg = 1000 Iu)] 2,000 unit PO DAILY 01/15/20 [History] Gabapentin [Neurontin] 600 mg PO BID 01/15/20 [History] Glucosamine/Chondr Lopez A Sod [Osteo Bi-Flex Caplet] 1 each PO DAILY 01/15/20 [History] Losartan Potassium [Cozaar] 100 mg PO DAILY 01/15/20 [History] Magnesium Oxide [Mag-Oxide] 200 mg PO HS 01/15/20 [History] Ubidecarenone [Co Q-10] 100 mg PO DAILY 01/15/20 [History] traMADol HCL [Ultram] 50 mg PO Q6HR PRN 01/15/20 [History] Aspirin 325 mg PO BID #60 tab 01/24/20 [Rx] HYDROcodone/APAP 5-325MG [[place] 5-325] 1 - 2 tab PO Q6HR PRN #48 tab 01/24/20 [Rx] Sennosides [Senokot] 2 tab PO DAILY PRN #60 tablet 01/24/20 [Rx] Acetaminophen Tab [Tylenol] 650 mg PO Q6HR PRN tab 01/26/20 [Rx] Follow up Appointment(s)/Referral(s): Tyson Rome MD [Primary Care Provider] - 1-2 days
--- NOTE | 2020-01-26 11:55 | XR ---
EXAMINATION TYPE: XR abdomen 2V DATE OF EXAM: 01/26/2020 CLINICAL HISTORY: Abdominal pain. TECHNIQUE: Supine and upright views of the abdomen are obtained. COMPARISON: Abdominal x-ray from yesterday. CT from 2014. FINDINGS: There is gas seen in mildly distended stomach. Gas noted in somewhat prominent scattered sm all and large bowel loops throughout the abdomen and upper pelvis with some air-fluid levels in the u pper pelvis. Contrast from recent CT is filling the bladder. Underlying scoliotic curvature. Metallic hardware left hip level is partially imaged. Moderate to severe narrowing and spurring right hip rowena nt. Underlying scoliosis with multilevel spurring and disc space narrowing in the spine. IMPRESSION: Overall nonspecific bowel gas pattern currently.
[2020-01-26 16:10] VITALS: BP 112/44; PULSE 69; RESP 17; TEMP 97.9
[2020-01-26] MEDS ORDERED: ATORVASTATIN 20 MG TAB PO SCH (21:00)
[2020-01-26] MEDS ORDERED: MAGNESIUM OXIDE 400 MG TAB PO SCH (21:00)
== END 2020-01-26 17:54 | disposition home or self-care (01) | DRG 312 ==
LOC: EC 18:29 → 4SSUR 22:12 → OBSVTOIN 01-26 10:57
PROVIDERS: ADMIT Family Medicine; ATTEND Family Medicine
DX: R55 Syncope and collapse (principal); E87.1 Hypo-osmolality and hyponatremia; D50.0 Iron deficiency anemia secondary to blood loss (chronic); I10 Essential (primary) hypertension; E78.5 Hyperlipidemia, unspecified; R32 Unspecified urinary incontinence; R19.7 Diarrhea, unspecified; R41.0 Disorientation, unspecified; M19.90 Unspecified osteoarthritis, unspecified site; Z79.82 Long term (current) use of aspirin; Z79.1 Long term (current) use of non-steroidal anti-inflammatories (NSAID); Z79.899 Other long term (current) drug therapy; Z85.3 Personal history of malignant neoplasm of breast; Z96.642 Presence of left artificial hip joint; Z88.2 Allergy status to sulfonamides; Z88.7 Allergy status to serum and vaccine; Z88.1 Allergy status to other antibiotic agents; Z91.041 Radiographic dye allergy status
CPT/HCPCS: 36415; 70450; 71046; 71275; 72170; 74018; 74019; 80053; 81001; 83735; 84484; 85025; 85610; 85730; 93005; 96361; 96374; 96375; 99285

== ENCOUNTER → 2020-02-05 | Outpatient (CLI) | payer MEDICARE, BC ==
[2020-02-05 16:19] LABS: HCT 27.6 % (34.0-46.0); HGB 8.6 gm/dL (11.4-16.0); Hypochromasia Slight; MCH 30.7 pg (25.0-35.0); MCHC 31.2 g/dL (31.0-37.0); MCV 98.3 fL (80.0-100.0); Mean Platelet Volume 6.3; Platelet Count 619 k/uL (150-450); RBC 2.81 m/uL (3.80-5.40); WBC 5.4 k/uL (3.8-10.6)
[2020-02-05 17:26] LABS: Eosinophils # (M) 0.16 k/uL (0-0.7); Lymphocytes # (M) 1.35 k/uL (1.0-4.8); Monocytes # (M) 0.49 k/uL (0-1.0); Neutrophils % (M) 63 %; Nucleated Red Blood Cells 0 /100 WBC (0-0); Total Cells Counted 100
[2020-02-05 21:11] LABS: African American GFR (CKD) 59.9 (60.0-200.0); Anion Gap 8.6 mmol/L (4.00-12.00); Carbon Dioxide 23.4 mmol/L (21.6-31.8); Non-African American GFR(CKD) 51.7 (60.0-200.0); Potassium 5.4 mmol/L (3.5-5.5)
[2020-02-05 21:14] LABS: Hemoglobin A1C 6.1 % (4.0-6.0)
== END | disposition home or self-care (01) ==
LOC: LABWHC1 14:11
PROVIDERS: ATTEND Family Medicine
DX: R73.09 Other abnormal glucose (principal); R53.82 Chronic fatigue, unspecified
CPT/HCPCS: 36415; 80048; 83036; 85025

== ENCOUNTER 2020-05-07 22:57 | Emergency (ER) | payer MEDICARE, BC ==
[2020-05-07 23:16] VITALS: TEMP 97.6
[2020-05-07] MEDS ORDERED: ONDANSETRON 4 MG/2 ML VIAL IVP STA (23:31)
[2020-05-07] MEDS ORDERED: SODIUM CHLORIDE 0.9% 500 ML 500 ML IV STA (23:31)
--- NOTE | 2020-05-07 23:57 | XR ---
EXAMINATION TYPE: XR chest 2V DATE OF EXAM: 05/07/2020 COMPARISON: 01/25/2020 HISTORY: Chest pain TECHNIQUE: FINDINGS: There is no heart failure nor confluent pneumonic infiltrate. Costophrenic angles are clear . Thoracic aorta is atheromatous. Bony thorax is intact. IMPRESSION: No active cardiopulmonary disease. No change.
--- NOTE | 2020-05-08 00:06 | ED ---
Nausea/Vomiting/Diarrhea HPI - General Chief complaint: Nausea/Vomiting/Diarrhea Stated complaint: Vomiting Time Seen by Provider: 05/07/20 22:58 Source: patient, EMS Mode of arrival: EMS Limitations: no limitations - History of Present Illness Initial comments: 85 year-old female patient presents to the emergency department for evaluation of dizziness and vomiting. Patient states she started to feel poorly around 10pm this evening. Patient states she started to feel woozy and then began to vomit. States she felt like she was going to pass out. She denies any chest pain, shortness of breath, or sweats. Denies numbness or tingling to the extremities. Denies any headache, blurred vision, or double vision. Patient states she is having abdominal cramping like she needs to have diarrhea. She did have an episode of diarrhea this morning and then felt fine throughout the day. States she has felt like this in the past with food poisoning. Denies taking any medication for her symptoms. Patient denies any recent rash, fever, chills, cough, back pain, numbness, tingling, hematuria, dysuria, urinary urgency, urinary frequency, headache, visual changes, or any other complaints. - Related Data Home Medications Medication Instructions Recorded Confirmed Meloxicam [Mobic] 7.5 mg PO DAILY 12/27/13 01/25/20 Simvastatin [Zocor] 10 mg PO HS 12/27/13 01/25/20 Calcium Carbonate [Calcium] 600 mg PO DAILY 01/15/20 01/25/20 Cholecalciferol [Vitamin D3 (25 2,000 unit PO DAILY 01/15/20 01/25/20 Mcg = 1000 Iu)] Gabapentin [Neurontin] 600 mg PO BID 01/15/20 01/25/20 Glucosamine/Chondr Lopez A Sod [Osteo 1 each PO DAILY 01/15/20 01/25/20 Bi-Flex Caplet] Losartan Potassium [Cozaar] 100 mg PO DAILY 01/15/20 01/25/20 Magnesium Oxide [Mag-Oxide] 200 mg PO HS 01/15/20 01/25/20 Ubidecarenone [Co Q-10] 100 mg PO DAILY 01/15/20 01/25/20 traMADol HCL [Ultram] 50 mg PO Q6HR PRN 01/15/20 01/25/20 Previous Rx's Medication Instructions Recorded Aspirin 325 mg PO BID #60 tab 01/24/20 HYDROcodone/APAP 5-325MG [[place] 1 - 2 tab PO Q6HR PRN #48 tab 01/24/20 5-325] Sennosides [Senokot] 2 tab PO DAILY PRN #60 tablet 01/24/20 Acetaminophen Tab [Tylenol] 650 mg PO Q6HR PRN tab 01/26/20 Loperamide [Imodium] 2 mg PO QID PRN #8 capsule 05/08/20 Ondansetron [Zofran ODT] 4 mg PO Q8HR PRN #10 tab 05/08/20 Ondansetron [Zofran ODT] 4 mg PO Q8HR PRN #10 tab 05/08/20 Allergies Allergy/AdvReac Type Severity Reaction Status Date / Time influenza virus vaccine qs Allergy Anaphylaxis Verified 05/07/20 23:16 2012- [From Single Use EZ Flu] Iodinated Contrast Media Allergy Unknown Verified 05/07/20 23:16 [Iodinated Contrast Media - IV Dye] Sulfa (Sulfonamide Allergy Nausea & Verified 05/07/20 23:16 Antibiotics) Vomiting Review of Systems ROS Statement: Those systems with pertinent positive or pertinent negative responses have been documented in the HPI. ROS Other: All systems not noted in ROS Statement are negative. Past Medical History Past Medical History: Blood Disorder, Cancer, Hyperlipidemia, Hypertension, Osteoarthritis (OA) Additional Past Medical History / Comment(s): hyponatremia History of Any Multi-Drug Resistant Organisms: None Reported Past Surgical History: Orthopedic Surgery Additional Past Surgical History / Comment(s): left hip replacement 01/22/2020, left lumpectomy. Past Anesthesia/Blood Transfusion Reactions: No Reported Reaction Past Psychological History: No Psychological Hx Reported Smoking Status: Never smoker Past Alcohol Use History: Unable to Obtain Past Drug Use History: None Reported General Exam Limitations: no limitations General appearance: alert, in no apparent distress, other (This is a well- developed, well-nourished adult female patient in no acute distress. Vital signs upon presentation are temperature 97.6F, pulse 74, respirations 16, blood pressure 116/48, pulse ox 97% on room air.) Eye exam: Present: normal appearance, PERRL, EOMI. Absent: scleral icterus, conjunctival injection, nystagmus, periorbital swelling ENT exam: Present: normal exam, normal oropharynx, mucous membranes moist Respiratory exam: Present: normal lung sounds bilaterally. Absent: respiratory distress, wheezes, rales, rhonchi, stridor Cardiovascular Exam: Present: regular rate, normal rhythm, normal heart sounds. Absent: systolic murmur, diastolic murmur, rubs, gallop, clicks GI/Abdominal exam: Present: soft, normal bowel sounds. Absent: distended, tenderness, guarding, rebound, rigid Neurological exam: Present: alert, oriented X3, CN II-XII intact Expanded Speech: Present: fluid speech Cranial nerves: Nystagmus: Normal Motor strength exam: RUE: 5, LUE: 5, RLE: 5, LLE: 5 Psychiatric exam: Present: normal affect, normal mood Skin exam: Present: warm, dry, intact, normal color. Absent: rash Course Vital Signs 05/07/20 05/08/20 05/08/20 23:11 02:03 02:56 Temperature 97.6 F Pulse Rate 74 90 Respiratory 16 20 Rate Blood Pressure 116/48 115/50 Blood Pressure 100/62 [Sitting] Blood Pressure 107/45 [Standing] Blood Pressure 104/43 [Supine] O2 Sat by Pulse 97 96 Oximetry Medical Decision Making - Medical Decision Making 85-year-old female patient presented to the emergency department today for evaluation of dizziness, nausea, and vomiting. Physical examination did reveal soft nontender abdomen. Patient was having some abdominal cramping. Did having 3 large diarrheal bowel movements while in the department. No blood was present. She did have an episode of low blood pressure after her second bowel movement. We did give an additional liter of normal saline. Performed orthostatic vital signs which were unremarkable after the fluids are completed. Labs reviewed and are unremarkable. She is afebrile. She does feel better and would like to be discharged home. She is given Zofran and Imodium. She is instructed to follow-up with her primary care physician for recheck tomorrow. Return parameters were discussed in detail. She verbalizes understanding and agrees with this plan. Case discussed with my attending Dr. Carlton. - Lab Data Result diagrams: 05/07/20 23:47 05/07/20 23:47 Lab Results 05/07/20 05/07/20 05/07/20 Range/Units 23:47 23:47 23:47 WBC 3.9 (3.8-10.6) k/uL RBC 4.40 (3.80-5.40) m/uL Hgb 13.2 (11.4-16.0) gm/dL Hct 41.2 (34.0-46.0) % MCV 93.6 (80.0-100.0) fL MCH 30.1 (25.0-35.0) pg MCHC 32.1 (31.0-37.0) g/dL RDW 13.9 (11.5-15.5) % Plt Count 201 (150-450) k/uL MPV 7.3 Neutrophils % (Manual) 70 % Band Neuts % (Manual) 20 % Lymphocytes % (Manual) 9 % Monocytes % (Manual) 1 % Metamyelocytes % 1 % Neutrophils # (Manual) 3.50 (1.3-7.7) k/uL Lymphocytes # (Manual) 0.35 L (1.0-4.8) k/uL Monocytes # (Manual) 0.04 (0-1.0) k/uL Metamyelocytes # (Man) 0.04 H (0) k/uL Nucleated RBCs 0 (0-0) /100 WBC Manual Slide Review Performed Toxic Granulation Present Toxic Vacuolation Present PT 9.8 (9.0-12.0) sec INR 0.9 (<1.2) APTT 20.2 L (22.0-30.0) sec Sodium 135 L (137-145) mmol/L Potassium 4.0 (3.5-5.1) mmol/L Chloride 102 (98-107) mmol/L Carbon Dioxide 24 (22-30) mmol/L Anion Gap 9 mmol/L BUN 25 H (7-17) mg/dL Creatinine 1.03 (0.52-1.04) mg/dL Est GFR (CKD-EPI)AfAm 57 (>60 ml/min/1.73 sqM) Est GFR (CKD-EPI)NonAf 50 (>60 ml/min/1.73 sqM) Glucose 88 (74-99) mg/dL Calcium 9.7 (8.4-10.2) mg/dL Magnesium 1.7 (1.6-2.3) mg/dL Total Bilirubin 0.4 (0.2-1.3) mg/dL AST 39 H (14-36) U/L ALT 32 (4-34) U/L Alkaline Phosphatase 95 (38-126) U/L Troponin I (0.000-0.034) ng/mL Total Protein 7.1 (6.3-8.2) g/dL Albumin 4.4 (3.5-5.0) g/dL Lipase 73 (23-300) U/L Urine Color Urine Appearance (Clear) Urine pH (5.0-8.0) Ur Specific Mackey (1.001-1.035) Urine Protein (Negative) Urine Glucose (UA) (Negative) Urine Ketones (Negative) Urine Blood (Negative) Urine Nitrite (Negative) Urine Bilirubin (Negative) Urine Urobilinogen (<2.0) mg/dL Ur Leukocyte Esterase (Negative) 05/07/20 05/08/20 Range/Units 23:47 01:55 WBC (3.8-10.6) k/uL RBC (3.80-5.40) m/uL Hgb (11.4-16.0) gm/dL Hct (34.0-46.0) % MCV (80.0-100.0) fL MCH (25.0-35.0) pg MCHC (31.0-37.0) g/dL RDW (11.5-15.5) % Plt Count (150-450) k/uL MPV Neutrophils % (Manual) % Band Neuts % (Manual) % Lymphocytes % (Manual) % Monocytes % (Manual) % Metamyelocytes % % Neutrophils # (Manual) (1.3-7.7) k/uL Lymphocytes # (Manual) (1.0-4.8) k/uL Monocytes # (Manual) (0-1.0) k/uL Metamyelocytes # (Man) (0) k/uL Nucleated RBCs (0-0) /100 WBC Manual Slide Review Toxic Granulation Toxic Vacuolation PT (9.0-12.0) sec INR (<1.2) APTT (22.0-30.0) sec Sodium (137-145) mmol/L Potassium (3.5-5.1) mmol/L Chloride (98-107) mmol/L Carbon Dioxide (22-30) mmol/L Anion Gap mmol/L BUN (7-17) mg/dL Creatinine (0.52-1.04) mg/dL Est GFR (CKD-EPI)AfAm (>60 ml/min/1.73 sqM) Est GFR (CKD-EPI)NonAf (>60 ml/min/1.73 sqM) Glucose (74-99) mg/dL Calcium (8.4-10.2) mg/dL Magnesium (1.6-2.3) mg/dL Total Bilirubin (0.2-1.3) mg/dL AST (14-36) U/L ALT (4-34) U/L Alkaline Phosphatase (38-126) U/L Troponin I <0.012 (0.000-0.034) ng/mL Total Protein (6.3-8.2) g/dL Albumin (3.5-5.0) g/dL Lipase (23-300) U/L Urine Color Light Yellow Urine Appearance Clear (Clear) Urine pH 5.0 (5.0-8.0) Ur Specific Mackey 1.007 (1.001-1.035) Urine Protein Negative (Negative) Urine Glucose (UA) Negative (Negative) Urine Ketones Negative (Negative) Urine Blood Negative (Negative) Urine Nitrite Negative (Negative) Urine Bilirubin Negative (Negative) Urine Urobilinogen <2.0 (<2.0) mg/dL Ur Leukocyte Esterase Negative (Negative) - Radiology Data Radiology results: report reviewed, image reviewed Two-view x-ray of the chest is obtained. Report is reviewed in its entirety. Impression by Dr. Hernández shows no active cardiopulmonary disease. No change. Disposition Clinical Impression: Vasovagal episode, Diarrhea, Vomiting Disposition: HOME SELF-CARE Condition: Good Instructions (If sedation given, give patient instructions): Acute Nausea and Vomiting (ED), Acute Diarrhea (ED), Dizziness (ED) Additional Instructions: Change positions slowly. Increase fluids. Take medications as needed for symptom relief. Follow-up with your primary care physician for recheck in 1-2 days. Return to the emergency department immediately if you start to feel worse or develop any new symptoms. Prescriptions: Loperamide [Imodium] 2 mg PO QID PRN #8 capsule PRN Reason: Diarrhea Ondansetron [Zofran ODT] 4 mg PO Q8HR PRN #10 tab PRN Reason: Nausea Ondansetron [Zofran ODT] 4 mg PO Q8HR PRN #10 tab PRN Reason: Nausea Is patient prescribed a controlled substance at d/c from ED?: No Referrals: Tyson Rome MD [Primary Care Provider] - 1-2 days Time of Disposition: 02:55
[2020-05-08] MEDS ORDERED: MORPHINE SULFATE 2 MG/ML SYRINGE IVP STA (00:08)
[2020-05-08 00:09] LABS: Albumin 4.4 g/dL (3.5-5.0); Calcium 9.7 mg/dL (8.4-10.2); Magnesium 1.7 mg/dL (1.6-2.3); Total Bilirubin 0.4 mg/dL (0.2-1.3); Total Protein 7.1 g/dL (6.3-8.2)
[2020-05-08 00:30] LABS: INR 0.9 (<1.2); Prothrombin Time 9.8 sec (9.0-12.0)
[2020-05-08 00:32] LABS: Partial Thromboplastin Time 20.2 sec (22.0-30.0)
[2020-05-08 00:39] LABS: HCT 41.2 % (34.0-46.0); HGB 13.2 gm/dL (11.4-16.0); MCH 30.1 pg (25.0-35.0); MCHC 32.1 g/dL (31.0-37.0); MCV 93.6 fL (80.0-100.0); Mean Platelet Volume 7.3; Platelet Count 201 k/uL (150-450); RDW 13.9 % (11.5-15.5); WBC 3.9 k/uL (3.8-10.6)
[2020-05-08 00:57] LABS: Band Neutrophils % 20 %; Lymphocytes # (M) 0.35 k/uL (1.0-4.8); Metamyelocytes # (M) 0.04 k/uL (0); Metamyelocytes % 1 %; Monocytes # (M) 0.04 k/uL (0-1.0); Neutrophils % (M) 70 %; Nucleated Red Blood Cells 0 /100 WBC (0-0); Total Cells Counted 200
[2020-05-08 00:58] LABS: Toxic Granulation Present; Toxic Vacuolation Present
[2020-05-08] MEDS ORDERED: SODIUM CHLORIDE 0.9% 500 ML 500 ML IV ONE (01:03)
[2020-05-08] MEDS ORDERED: SODIUM CHLORIDE 0.9% 1,000 ML IV ONE (01:36)
[2020-05-08 02:05] VITALS: PULSE 90; RESP 20
[2020-05-08 02:18] LABS: Appearance,Urine Clear (Clear); Bilirubin,Urine Negative (Negative); Blood,Urine Negative (Negative); Color,Urine Light Yellow; Glucose,Urine (UA) Negative (Negative); Ketones,Urine Negative (Negative); Leukocyte Esterase,Urine Negative (Negative); Nitrite,Urine Negative (Negative); Protein,Urine Negative (Negative); Specific Gravity,Urine 1.007 (1.001-1.035); Urobilinogen,Urine <2.0 mg/dL (<2.0)
[2020-05-08] MEDS ORDERED: ONDANSETRON 4 MG ODT STARTER PACK 2 TAB BTL PO STA (02:55)
[2020-05-08 02:58] VITALS: BP 104/43
[2020-05-08] MEDS ORDERED: LOPERAMIDE 2 MG CAP PO STA (03:04)
== END 2020-05-08 03:36 | disposition home or self-care (01) ==
LOC: EC 22:57
DX: R55 Syncope and collapse (principal); R19.7 Diarrhea, unspecified; R11.10 Vomiting, unspecified; R42 Dizziness and giddiness; I10 Essential (primary) hypertension; E78.5 Hyperlipidemia, unspecified; M19.90 Unspecified osteoarthritis, unspecified site; Z79.1 Long term (current) use of non-steroidal anti-inflammatories (NSAID); Z79.899 Other long term (current) drug therapy; Z88.2 Allergy status to sulfonamides; Z91.041 Radiographic dye allergy status; Z88.7 Allergy status to serum and vaccine; Z96.642 Presence of left artificial hip joint
CPT/HCPCS: 36415; 93005; 80053; 83690; 83735; 84484; 85025; 85610; 85730; 71046; 99285; 96374; 96361 ×2; J2405; 81003

== ENCOUNTER 2020-07-23 14:50 | Emergency (ER) | payer MEDICARE, BC ==
--- NOTE | 2020-07-23 15:55 | ED ---
General Adult HPI - General Chief complaint: Fall Stated complaint: pt fell and hit her head Time Seen by Provider: 07/23/20 15:35 Source: patient, family, RN notes reviewed, old records reviewed Mode of arrival: ambulatory Limitations: no limitations - History of Present Illness Initial comments: 85 yo female presenting status post fall. Patient was golfing, she had tripped and fallen backwards onto her tailbone. Injuring her neck. She was momentarily dazed and confused. She did not lose consciousness. She denies anticoagulation. She was ambulatory after the fall. She is complaining predominantly of tailbone pain but does have some neck pain as well. - Related Data Home Medications Medication Instructions Recorded Confirmed Meloxicam [Mobic] 7.5 mg PO DAILY 12/27/13 01/25/20 Simvastatin [Zocor] 10 mg PO HS 12/27/13 01/25/20 Calcium Carbonate [Calcium] 600 mg PO DAILY 01/15/20 01/25/20 Cholecalciferol [Vitamin D3 (25 2,000 unit PO DAILY 01/15/20 01/25/20 Mcg = 1000 Iu)] Gabapentin [Neurontin] 600 mg PO BID 01/15/20 01/25/20 Glucosamine/Chondr Lopez A Sod [Osteo 1 each PO DAILY 01/15/20 01/25/20 Bi-Flex Caplet] Losartan Potassium [Cozaar] 100 mg PO DAILY 01/15/20 01/25/20 Magnesium Oxide [Mag-Oxide] 200 mg PO HS 01/15/20 01/25/20 Ubidecarenone [Co Q-10] 100 mg PO DAILY 01/15/20 01/25/20 traMADol HCL [Ultram] 50 mg PO Q6HR PRN 01/15/20 01/25/20 Previous Rx's Medication Instructions Recorded Aspirin 325 mg PO BID #60 tab 01/24/20 HYDROcodone/APAP 5-325MG [[place] 1 - 2 tab PO Q6HR PRN #48 tab 01/24/20 5-325] Sennosides [Senokot] 2 tab PO DAILY PRN #60 tablet 01/24/20 Acetaminophen Tab [Tylenol] 650 mg PO Q6HR PRN tab 01/26/20 Loperamide [Imodium] 2 mg PO QID PRN #8 capsule 05/08/20 Ondansetron [Zofran ODT] 4 mg PO Q8HR PRN #10 tab 05/08/20 Ondansetron [Zofran ODT] 4 mg PO Q8HR PRN #10 tab 05/08/20 Allergies Allergy/AdvReac Type Severity Reaction Status Date / Time influenza virus vaccine qs Allergy Anaphylaxis Verified 07/23/20 15:33 2012- [From Single Use EZ Flu] Iodinated Contrast Media Allergy Unknown Verified 07/23/20 15:33 [Iodinated Contrast Media - IV Dye] Sulfa (Sulfonamide Allergy Nausea & Verified 07/23/20 15:33 Antibiotics) Vomiting Review of Systems ROS Statement: Those systems with pertinent positive or pertinent negative responses have been documented in the HPI. ROS Other: All systems not noted in ROS Statement are negative. Past Medical History Past Medical History: Blood Disorder, Cancer, Hyperlipidemia, Hypertension, Osteoarthritis (OA) Additional Past Medical History / Comment(s): hyponatremia History of Any Multi-Drug Resistant Organisms: None Reported Past Surgical History: Orthopedic Surgery Additional Past Surgical History / Comment(s): left hip replacement 01/22/2020, left lumpectomy. Past Anesthesia/Blood Transfusion Reactions: No Reported Reaction Past Psychological History: No Psychological Hx Reported Smoking Status: Never smoker Past Alcohol Use History: Unable to Obtain Past Drug Use History: None Reported General Exam Limitations: no limitations General appearance: alert, in no apparent distress Head exam: Present: atraumatic, normocephalic Eye exam: Present: normal appearance, PERRL ENT exam: Present: normal exam Neck exam: Present: normal inspection, full ROM. Absent: tenderness, meningismus Respiratory exam: Present: normal lung sounds bilaterally. Absent: respiratory distress, wheezes Cardiovascular Exam: Present: regular rate, normal rhythm GI/Abdominal exam: Present: soft. Absent: distended, tenderness, guarding Extremities exam: Present: normal inspection, normal capillary refill. Absent: pedal edema, calf tenderness Back exam: Present: vertebral tenderness (Lumbar sacral) Neurological exam: Present: alert, oriented X3, CN II-XII intact. Absent: motor sensory deficit Psychiatric exam: Present: normal affect, normal mood Skin exam: Present: warm, dry, intact. Absent: cyanosis, diaphoretic Course Vital Signs 07/23/20 15:25 Temperature 97.8 F Pulse Rate 70 Respiratory 17 Rate Blood Pressure 185/76 O2 Sat by Pulse 99 Oximetry Medical Decision Making - Medical Decision Making 85-year-old female with fall, head injury. Head CT performed negative for intracranial hemorrhage or mass effect. Cervical spine negative for fracture or subluxation. Did perform x-rays of the lumbosacral spine which do show the degree of arthritis but no acute fracture. Disposition Clinical Impression: Fall, Concussion Disposition: HOME SELF-CARE Condition: Good Instructions (If sedation given, give patient instructions): Fall Prevention (ED), Concussion (ED) Is patient prescribed a controlled substance at d/c from ED?: No Referrals: Tyson Rome MD [Primary Care Provider] - 1-2 days Time of Disposition: 16:45
--- NOTE | 2020-07-23 16:33 | CT ---
EXAMINATION TYPE: CT brain cspine wo con DATE OF EXAM: 07/23/2020 COMPARISON: CT brain January 25, 2020 HISTORY: Fall with posterior head injury and neck pain. CT DLP: 1269.4 mGycm. Automated Exposure Control for Dose Reduction was Utilized. TECHNIQUE: CT scan of the head and cervical spine are performed without contrast. FINDINGS: There is no acute intracranial hemorrhage or midline shift identified. Mild to moderate v entricular and sulcal prominence. Mild to moderate low-attenuation in the deep and periventricular wh ite matter. The calvarium is intact. Focal eccentric mucosal thickening posterior left sphenoid sinus redemonstrated. Scleral calcification bilateral globes again seen. Cervical spine is visualized in its entirety from C1 through upper thoracic levels and demonstrates s atisfactory alignment without evidence of acute fracture or dislocation. Prevertebral soft tissue ap pears within normal limits. The C1-C2 articulation is within normal limits on the coronal images. V ertebral body heights are maintained. Moderate to severe disc space narrowing and spurring C5-C6 leve l. Severe disc space narrowing and moderate to severe spurring C6-C7 level. Posterior spur disc compl exes efface the anterior thecal sac at these levels. There is atlantodental interval narrowing. There is thickening and calcification of the spinal ligament and anterior aspect foramen magnum extending to mid C2 level. Axial images show multilevel uncovertebral facet degenerative changes bilaterally co ntributing to multilevel bilateral neural foraminal narrowing. Incidental 2.0 cm left thyroid nodule coronal image 17 lower pole level, advise nonemergent thyroid ultrasound follow-up of this is not kno wn finding. Lung apices show no pneumothorax. IMPRESSION: 1. There is no acute fracture or dislocation evident in the cervical spine. 2. No acute intracranial hemorrhage or midline shift is seen.
--- NOTE | 2020-07-23 16:35 | XR ---
EXAMINATION TYPE: XR lumbosacral spine min 4V DATE OF EXAM: 07/23/2020 CLINICAL HISTORY: Low back pain after falling injury. TECHNIQUE: Frontal, lateral, and oblique images of the lumbar spine are obtained. COMPARISON: None FINDINGS: There is accessory left L1 rib. There is grade 1 anterolisthesis L4 on L5. [id number] re disc space narrowing and vacuum disc phenomenon L5-S1 level. Suboptimal evaluation due to patient' s large body habitus. There is grade 1 retrolisthesis L2 on L3. No obvious acute displaced fracture. Multilevel spinous process hypertrophy. Multilevel facet arthropathy in the mid to lower lumbar spine . Moderate to severe overlying atherosclerotic change of aorta. IMPRESSION: As above.
[2020-07-23 17:09] VITALS: BP 128/74; PULSE 78; RESP 16; TEMP 98
== END 2020-07-23 17:08 | disposition home or self-care (01) ==
LOC: EC 14:50
DX: S06.0X0A Concussion without loss of consciousness, initial encounter (principal); W01.0XXA Fall on same level from slipping, tripping and stumbling without subsequent striking against object, initial encounter; I10 Essential (primary) hypertension; E78.5 Hyperlipidemia, unspecified; M19.90 Unspecified osteoarthritis, unspecified site
CPT/HCPCS: 70450; 72110; 72125; 99284

== ENCOUNTER → 2020-09-12 | Outpatient (CLI) | payer MEDICARE, BC ==
--- NOTE | 2020-09-12 12:14 | MM ---
Reason for exam: additional evaluation requested from prior study. Last mammogram was performed 1 year ago. History: Patient is postmenopausal and has history of breast cancer at age 63. Family history of premenopausal breast cancer in maternal aunt at age 38, breast cancer in maternal cousin at age 40, and breast cancer in maternal cousin at age 50. Benign stereotactic core biopsy of the right breast, February 26, 2004. Benign stereotactic core biopsy of the right breast, February 26, 2004. Benign stereotactic core biopsy of the left breast, October 29, 1998. Malignant lumpectomy of the left breast, March 03, 1998. Core biopsy of the left breast, February 17, 1998. Malignant stereotactic core biopsy of the left breast, February 17, 1998. Core biopsy of the left breast. 2 core biopsies of the right breast. Radiation therapy of the left breast. Took hormonal contraceptives for 7 years beginning at age 40. Took estrogen for 11 years beginning at age 52. Took progesterone for 11 years beginning at age 52. Took antineoplastic for 5 years. Physical Findings: Nurse did not find any significant physical abnormalities on exam. MG 3D Diag Mammo W/Cad TRINI Bilateral CC and MLO view(s) were taken. Prior study comparison: September 11, 2019, bilateral MG 3d diag mammo w/cad TRINI. July 10, 2018, bilateral MG 3d diag mammo w/cad TRINI. The breast tissue is heterogeneously dense. This may lower the sensitivity of mammography. Left post operative changes and skin thickening. Two right biopsy clips. These results were verbally communicated with the patient and result sheet given to the patient on 09/12/20. ASSESSMENT: Benign, BI-RAD 2 RECOMMENDATION: Follow-up diagnostic mammogram of both breasts in 1 year.
== END | disposition home or self-care (01) ==
LOC: RADMAMWWP 10:57
PROVIDERS: ATTEND Family Medicine
DX: Z08 Encounter for follow-up examination after completed treatment for malignant neoplasm (principal); Z85.3 Personal history of malignant neoplasm of breast
CPT/HCPCS: 77066; G0279; 77062

== ENCOUNTER → 2020-09-17 | Outpatient (CLI) | payer MEDICARE, BC ==
--- NOTE | 2020-09-17 11:56 | US ---
EXAMINATION TYPE: US carotid duplex BILAT DATE OF EXAM: 09/17/2020 COMPARISON: NONE CLINICAL HISTORY: R09.89 Carotid artery bruit. possible bruit at doctor's office EXAM MEASUREMENTS: RIGHT: Peak Systolic Velocity (PSV) cm/sec ----- Right CCA: 64.6 ----- Right ICA: 89.9 ----- Right ECA: 74.5 ICA/CCA ratio: 1.4 RIGHT: End Diastole cm/sec ----- Right CCA: 15.4 ----- Right ICA: 28.2 ----- Right ECA: 8.4 LEFT: Peak Systolic Velocity (PSV) cm/sec ----- Left CCA: 64.3 ----- Left ICA: 87.7 ----- Left ECA: 97.6 ICA/CCA ratio: 1.4 LEFT: End Diastole cm/sec ----- Left CCA: 15.4 ----- Left ICA: 23.8 ----- Left ECA: 6.2 VERTEBRALS (direction of flow): Right Vertebral: Antegrade Left Vertebral: Antegrade Rhythm: Normal Heterogeneous plaque with no significant stenosis IMPRESSION: No sonographic evidence for hemodynamically significant stenosis of the carotid arteries. Criteria for Assigning % of Stenosis / Diameter reduction (Estimation based on the indirect measurements of the internal carotid artery velocities (ICA PSV). 1. Normal (no stenosis)=ICA PSV < 125 cm/s: ratio < 2.0: ICA EDV<40 cm/s. 2. Less than 50% stenosis=ICA PSV < 125 cm/s: ratio < 2.0: ICA EDV<40 cm/s. 3. 50 to 69% stenosis=ICA PSV of 125 to 230 cm/s: ration 2.0 ? 4.0: ICA EDV 40-100 cm/s. 4. Greater than 70% stenosis to near occlusion= ICA PSV > 230 cm/s: ratio > 4.0: ICA EDV > 100 cm/s. 5. Near occlusion= ICA PSV velocities may be low or undetectable: variable ratio and ICA EDV. 6. Total occlusion=unable to detect flow.
== END | disposition home or self-care (01) ==
LOC: RADUSWWP 10:47
PROVIDERS: ATTEND Family Medicine
DX: R09.89 Other specified symptoms and signs involving the circulatory and respiratory systems (principal); Z88.2 Allergy status to sulfonamides; Z91.041 Radiographic dye allergy status
CPT/HCPCS: 93880

== ENCOUNTER → 2021-09-15 | Outpatient (CLI) | payer MEDICARE, BC ==
--- NOTE | 2021-09-15 14:02 | MM ---
Reason for Exam: Follow-up at short interval from prior study. Last screening mammogram was performed 12 month(s) ago. Patient History: Menarche at age 12. First Full-Term at age 22. Postmenopausal. Breast cancer, age 63. Previous LCIS pathology result at age 63. Previous chest radiation therapy. Estrogen for 11 years from age 52 until age 63. Progesterone for 11 years from age 52 until age 63. Hormonal Contraceptives for 7 years from age 40 until age 47. Core Biopsy on the Right side. Core Biopsy on the Right side. Core Biopsy on the Left side. 02/26/2004, Benign Stereotactic Core Biopsy on the right side. 02/26/2004, Benign Stereotactic Core Biopsy on the right side. 02/17/1998, Core Biopsy on the Left side. 02/17/1998, Malignant Stereotactic Core Biopsy on the left side. 10/29/1998, Benign Stereotactic Core Biopsy on the left side. 03/03/1998, Malignant Lumpectomy on the left side. Radiation Therapy, left. Maternal cousin had breast cancer, age 40. Paternal cousin had breast cancer, age 50. Maternal aunt had breast cancer, age 38. Paternal cousin had breast cancer at or over age 50. Prior Study Comparison: 03/17/2017 Bilateral Diagnostic Mammogram, [facility]. 07/10/2018 Bilateral Diagnostic Mammogram, [facility]. 09/11/2019 Bilateral Diagnostic Mammogram, [facility]. 09/12/2020 Bilateral Diagnostic Mammogram, [facility]. Tissue Density: The breast tissue is extremely dense which could obscure a lesion on mammography. Findings: Analyzed By CAD. 31 postsurgical changes involving the left breast are stable with distortion. Surgical clips on the right are noted. There are benign-appearing calcifications bilaterally. Overall Assessment: Benign, BI-RAD 2 Management: Screening Mammogram of both breasts in 1 year. A clinical breast exam by your physician is recommended on an annual basis and results should be correlated with mammographic findings. This exam should not preclude additional follow-up of suspicious palpable abnormalities. Results were given to the patient verbally at the time of exam. Electronically signed and approved by: Brian Lopez M.D. Radiologis
== END | disposition home or self-care (01) ==
LOC: RADMAMWWP 12:56
PROVIDERS: ATTEND Family Medicine
DX: Z85.3 Personal history of malignant neoplasm of breast (principal); Z78.0 Asymptomatic menopausal state
CPT/HCPCS: 77066; G0279; 77062

== ENCOUNTER → 2021-12-01 | Outpatient (CLI) | payer MEDICARE, BC ==
--- NOTE | 2021-12-01 12:33 | BD ---
EXAMINATION TYPE: Axial Bone Density DATE OF EXAM: 12/01/2021 COMPARISON: 11.26.2019 STUDY UNAVAILABLE......TRENDED TO 03.17.2017 STUDY CLINICAL HISTORY: 86 years year old Female. ICD-10 CODE: Z78.0 POST MENOPAUSAL SYMPTOMS Height: 60 Weight: 135 FRAX RISK QUESTIONS: History of Fracture in Adulthood: YES RISK FACTORS HISTORY OF: TOES, LT FOOT Surgery to Spine...LAMINECTOMY L/S SPINE AND LT THR AN ADULT Postmenopausal woman: YES, AT 52 Lost more than 2 inches in height since high school: YES Frequent falls: ELDERLY Hyperparathyroidism: NO Adrenal Insufficiency: NO MEDICATIONS: Thyroid Medications: YES, IN THE PAST, FOR ABOUT 3 YRS, NOTHING NOW Additional Medications: BP MEDS, HX OF RADIATION, LT BREAST, STATIN FOR CHOLESTEROL, VIT D AND CALCIU M FOR 2 YRS NOW Additional History: LT BREAST CANCER, LUMPECTOMY 20 YRS AGO, OSTEOARTHRITIS, NSAIDS, PAIN MEDS, LT TH R, LUMBAR LAMINECTOMY EXAM MEASUREMENTS: Bone mineral densitometry was performed using the NICO System. LAMINECTOMY....SPINE NOT SCANNED Bone mineral density about the R hip (g/cm2): 1.016 T Score values are as follows: -----R Neck: 0.5 -----R Total: 0.1 Bone mineral density has: Decreased -3.4% since study of: 03.17.2017 Bone mineral density about the L Wrist (g/cm2): 0.444 T Score values are as follows: -----Dist. R+U: -2.4 -----Prox. R+U: -2.5 -----Radius total: -3.1 Bone mineral density TRENDING UNAVAILABLE FOR WRIST FRAX%s: The graph provided illustrates a 10.0% chance for a major osteoporotic fx and a 1.4% chance f or the hips probability for fx in 10 years time. IMPRESSION: Osteopenia (T Score between -2.5 and -1) remains present. There is slightly increased risk of fracture and the patient may be considered for treatment. Re-Screen 2-5 years. NOTE: T-SCORE=SD OF THE YOUNG ADULT MEAN.
== END | disposition home or self-care (01) ==
LOC: RADBDWWP 11:20
PROVIDERS: ATTEND Family Medicine
DX: Z85.3 Personal history of malignant neoplasm of breast (principal); Z78.0 Asymptomatic menopausal state
CPT/HCPCS: 77080

== ENCOUNTER → 2022-02-02 | Outpatient (CLI) | payer MEDICARE, BC ==
[2022-02-02 11:39] LABS: ALT 33 U/L (4-34); AST 28 U/L (14-36); African American GFR (CKD) 77 (>60 ml/min/1.73 sqM); Albumin 4.3 g/dL (3.5-5.0); Alkaline Phosphatase 74 U/L (38-126); Anion Gap 5 mmol/L; Blood Urea Nitrogen 16 mg/dL (7-17); Calcium 9.1 mg/dL (8.4-10.2); Carbon Dioxide 26 mmol/L (22-30); Chloride 99 mmol/L (98-107); Globulin 2.1 g/dL; Glucose 100 mg/dL (74-99); Non-African American GFR(CKD) 66 (>60 ml/min/1.73 sqM); Potassium 4.8 mmol/L (3.5-5.1); Sodium 130 mmol/L (137-145); Total Bilirubin 0.9 mg/dL (0.2-1.3); Total Protein 6.4 g/dL (6.3-8.2)
== END | disposition home or self-care (01) ==
LOC: LABWHC1 10:46
PROVIDERS: ATTEND Family Medicine
DX: R89.9 Unspecified abnormal finding in specimens from other organs, systems and tissues (principal)
CPT/HCPCS: 36415; 80053

== ENCOUNTER → 2023-01-31 | Outpatient (CLI) | payer MEDICARE, BC ==
--- NOTE | 2023-01-31 09:50 | XR ---
EXAMINATION TYPE: XR ankle complete LT DATE OF EXAM: 01/31/2023 COMPARISON: None HISTORY: Contusion 11 days prior TECHNIQUE: 3 view left ankle FINDINGS: Ankle mortise is intact. Mild diffuse soft tissue swelling is present. No acute fracture or dislocation is evident. Plantar and Achilles tendon calcaneal heel spurs are present. Follow up exams can be performed as clinically indicated. IMPRESSION: 1. Mild soft tissue prominence at the ankle. 2. No acute osseous abnormality radiographically apparent.
== END | disposition home or self-care (01) ==
LOC: RADXRMAIN 08:30
PROVIDERS: ATTEND Family Medicine
DX: S89.92XA Unspecified injury of left lower leg, initial encounter (principal); M79.89 Other specified soft tissue disorders; X58.XXXA Exposure to other specified factors, initial encounter

== ENCOUNTER 2023-02-01 11:15 | Emergency (ER) | payer MEDICARE, BC ==
[2023-02-01] MEDS ORDERED: ACETAMINOPHEN TAB 325 MG TAB PO STA (12:24)
[2023-02-01] MEDS ORDERED: GELATIN SPONGE,ABSORB (LARGE) 1 EACH SPONGE TOPICAL STA (12:32)
--- NOTE | 2023-02-01 12:35 | CT ---
EXAMINATION TYPE: CT brain vijaya wo con DATE OF EXAM: 02/01/2023 COMPARISON: 07/23/2020 HISTORY: 87-year-old female with pain after Fall CT DLP: 1405.5 mGycm Automated exposure control for dose reduction was used. Technique: Examination of the head was done in axial plane without intravenous contrast. Coronal and sagittal reconstructions performed. CT of the cervical spine was obtained in axial plane without intravenous injection of contrast mater ial. Coronal and sagittal reformatted images were obtained from the axial views for evaluation of f ractures, spinal alignment and canal. FINDINGS: Head: There is no evidence of acute intracranial hemorrhage, acute ischemic changes, mass, mass-effect, or extra-axial fluid collection. There is no effacement of cerebral sulci or basal subarachnoid cister ns. There is no hydrocephalus. There is no midline shift. Plaza-white matter distinction is preserv ed. Moderate mucosal thickening left sphenoid sinus. Partially empty sella. Atherosclerotic calcifications in the carotid siphons. Punctate benign basal ganglia calcifications Cervical spine: No craniocervical junction anomaly, predental space widening, or prevertebral soft tissue swelling. D egenerative bony ankylosis at the C1 dens articulation. Similar thickening of the transverse ligament . Moderate to advanced spondylotic change throughout with some additional degenerative interbody anky losis C6-C7 with fixed grade 1 anterolisthesis here. Additional grade 1 anterolisthesis T1-T2 and T2- T3. Diffuse osteopenia. Disc osteophyte complex contributes to mild narrowing of the spinal canal at C5-C6. A mild neural foraminal stenosis throughout. More moderate on both sides at C5-C6. No acute fracture seen of the cervical spine. Sagittal and coronal reformatted images confirm above findings. COMBINED IMPRESSION: 1. No acute intracranial abnormality seen. 2. No acute fracture of the cervical spine. Moderate multilevel spondylotic change with degenerative bony ankylosis at various levels. Fixed grade 1 anterolisthesis at C6-C7. Grade 1 anterolisthesis T1- T2 and T2-T3.
--- NOTE | 2023-02-01 12:41 | ED ---
Fall HPI - General Chief Complaint: Fall Stated Complaint: fall Time Seen by Provider: 02/01/23 11:33 Source: patient, family, RN notes reviewed Mode of arrival: ambulatory - History of Present Illness Initial Comments: Patient is a 87-year-old female presented ER chief complaint of a fall. Patient states she was walking up the steps onto her neighbor's porch when she tripped a nd fell landing on her right shoulder. Patient states she also hit her head but denies loss of consciousness. Patient does take a low-dose aspirin daily. Patient states she also scraped her right leg. Patient denies any other injuries. She endorses multiple skin tears. - Related Data Home Medications Medication Instructions Recorded Confirmed Meloxicam [Mobic] 7.5 mg PO DAILY 12/27/13 01/25/20 Simvastatin [Zocor] 10 mg PO HS 12/27/13 01/25/20 Calcium Carbonate [Calcium] 600 mg PO DAILY 01/15/20 01/25/20 Cholecalciferol [Vitamin D3 (25 2,000 unit PO DAILY 01/15/20 01/25/20 Mcg = 1000 Iu)] Gabapentin [Neurontin] 600 mg PO BID 01/15/20 01/25/20 Glucosamine/Chondr Lopez A Sod [Osteo 1 each PO DAILY 01/15/20 01/25/20 Bi-Flex Caplet] Losartan Potassium [Cozaar] 100 mg PO DAILY 01/15/20 01/25/20 Magnesium Oxide [Mag-Oxide] 200 mg PO HS 01/15/20 01/25/20 Ubidecarenone [Co Q-10] 100 mg PO DAILY 01/15/20 01/25/20 traMADol HCL [Ultram] 50 mg PO Q6HR PRN 01/15/20 01/25/20 Previous Rx's Medication Instructions Recorded Aspirin 325 mg PO BID #60 tab 01/24/20 HYDROcodone/APAP 5-325MG [[place] 1 - 2 tab PO Q6HR PRN #48 tab 01/24/20 5-325] Sennosides [Senokot] 2 tab PO DAILY PRN #60 tablet 01/24/20 Acetaminophen Tab [Tylenol] 650 mg PO Q6HR PRN tab 01/26/20 Loperamide [Imodium] 2 mg PO QID PRN #8 capsule 02/11/21 Ondansetron [Zofran ODT] 4 mg PO Q8HR PRN #10 tab 05/08/20 Ondansetron [Zofran ODT] 4 mg PO Q8HR PRN #10 tab 05/08/20 Allergies Allergy/AdvReac Type Severity Reaction Status Date / Time influenza virus vaccine qs Allergy Anaphylaxis Verified 02/01/23 11:29 2012- [From Single Use EZ Flu] Iodinated Contrast Media Allergy Unknown Verified 02/01/23 11:29 [Iodinated Contrast Media - IV Dye] Sulfa (Sulfonamide Allergy Nausea & Verified 02/01/23 11:29 Antibiotics) Vomiting Review of Systems ROS Statement: Those systems with pertinent positive or pertinent negative responses have been documented in the HPI. ROS Other: All systems not noted in ROS Statement are negative. Past Medical History Past Medical History: Blood Disorder, Cancer, Hyperlipidemia, Hypertension, Osteoarthritis (OA) Additional Past Medical History / Comment(s): hyponatremia History of Any Multi-Drug Resistant Organisms: None Reported Past Surgical History: Orthopedic Surgery Additional Past Surgical History / Comment(s): left hip replacement 01/22/2020, left lumpectomy. Past Anesthesia/Blood Transfusion Reactions: No Reported Reaction Past Psychological History: No Psychological Hx Reported Smoking Status: Never smoker Past Alcohol Use History: Occasional Past Drug Use History: None Reported General Exam Limitations: no limitations General appearance: alert, in no apparent distress Head exam: Present: atraumatic, normocephalic, normal inspection Eye exam: Present: normal appearance, PERRL, EOMI. Absent: scleral icterus, conjunctival injection, periorbital swelling Neck exam: Present: normal inspection. Absent: tenderness, meningismus, lymphadenopathy Extremities exam: Present: other (right leg skin tear noted (7 inches). 2+ dorsalis pedis pulse. no weakness noted.) Skin exam: Present: other (two skin tears noed on left elbow ) Course Vital Signs 02/01/23 11:25 Temperature 97.6 F Pulse Rate 91 Respiratory 24 Rate Blood Pressure 176/75 O2 Sat by Pulse 100 Oximetry Medical Decision Making - Medical Decision Making Was pt. sent in by a medical professional or institution (, PA, HOGSHEAD HEAD M[employer]ER, urgent care, hospital, or alf...) When possible be specific @ -No Did you speak to anyone other than the patient for history (EMS, parent, family, police, friend...)? What history was obtained from this source @ -Family Did you review nursing and triage notes (agree or disagree)? Why? @ -I reviewed and agree with nursing and triage notes Were old charts reviewed (outside hosp., previous admission, EMS record, old EKG, old radiological studies, urgent care reports/EKG's, alf records)? Report findings @ -No old charts were reviewed Differential Diagnosis (chest pain, altered mental status, abdominal pain women, abdominal pain men, vaginal bleeding, weakness, fever, dyspnea, syncope, headache, dizziness, GI bleed, back pain, seizure, CVA, palpatations, mental health, musculoskeletal)? @ -Differential Musculoskeletal Muscular strain, contusion, ligament sprain, fracture, arthritis, septic arthritis, bursitis, cellulitis, muscle spasm, nerve compression, DVT, arterial occlusion, herpes zoster, electrolyte abnormality, tumor.... This is not meant to be in all inclusive list EKG interpreted by me (3pts min.). @ -None X-rays interpreted by me (1pt min.). @ -None done CT interpreted by me (1pt min.). @ -[CT brain C-spine without contrast shows no acute intracranial processes. U/S interpreted by me (1pt. min.). @ -None done What testing was considered but not performed or refused? (CT, X-rays, U/S, labs)? Why? @ -None What meds were considered but not given or refused? Why? @ -None Did you discuss the management of the patient with other professionals (professionals i.e. , PA, [employer]ER, lab, RT, psych nurse, social service coordinator, plastic joint maker, teacher, chief business officer, lead case manager)? Give summary @ -No Was smoking cessation discussed for >3mins.? @ -No Was critical care preformed (if so, how long)? @ -No Were there social determinants of health that impacted care today? How? (Homelessness, low income, unemployed, alcoholism, drug addiction, transportation, low edu. Level, literacy, decrease access to med. care, fpc, rehab)? @ -No Was there de-escalation of care discussed even if they declined (Discuss DNR or withdrawal of care, Hospice)? DNR status @ -No What co-morbidities impacted this encounter? (DM, HTN, Smoking, COPD, CAD, Cancer, CVA, ARF, Chemo, Hep., AIDS, mental health diagnosis, sleep apnea, morbid obesity)? @ -None Was patient admitted / discharged? Hospital course, mention meds given and route, prescriptions, significant lab abnormalities, going to OR and other per tinent info. @ -Discharge. CT brain C-spine without contrast showed no acute intracranial processes. Patient's skin tear on her left leg was bandaged with Gelfoam, Vaseline and gauze. Skin tears were approximated using Steri-Strips. Patient was given by mouth Tylenol for pain in the ER. Patient was given extra gauze pads and tape acute change gauze if they become bloodsoaked or dirty. Patient advised to take [id number] Tylenol Motrin for pain control at home. She will be discharged in stable condition with follow-up to PCP. Undiagnosed new problem with uncertain prognosis? @ -No Drug Therapy requiring intensive monitoring for toxicity (Heparin, Nitro, Insulin, Cardizem)? @ -No Were any procedures done? @ -No Diagnosis/symptom? @ -Skin tear Acute, or Chronic, or Acute on Chronic? @ -Acute Uncomplicated (without systemic symptoms) or Complicated (systemic symptoms)? @ -Uncomplicated Side effects of treatment? @ -No Exacerbation, Progression, or Severe Exacerbation? @ -No Poses a threat to life or bodily function? How? (Chest pain, [place], NV, pneumonia, PE, COPD, DKA, ARF, appy, cholecystitis, CVA, Diverticulitis, Homicidal, Suicidal, threat to staff... and all critical care pts) @ -No - Radiology Data Radiology results: report reviewed, image reviewed Disposition Clinical Impression: Fall, Skin tear Disposition: HOME SELF-CARE Condition: Stable Instructions (If sedation given, give patient instructions): Fall Prevention (ED) Additional Instructions: Please return to the Emergency Department if symptoms worsen or any other concerns. Patient advised to take [id number] Tylenol Motrin for pain co ntrol. Patient advised to keep wounds clean and dry. Please follow-up with PCP. Is patient prescribed a controlled substance at d/c from ED?: No Referrals: Tyson Rome MD [Primary Care Provider] - 1-2 days Time of Disposition: 13:07
[2023-02-01 13:34] VITALS: BP 161/71; PULSE 65; RESP 18; TEMP 98.1
== END 2023-02-01 13:22 | disposition home or self-care (01) ==
LOC: EC 11:15
DX: S81.811A Laceration without foreign body, right lower leg, initial encounter (principal); E78.5 Hyperlipidemia, unspecified; I10 Essential (primary) hypertension; M19.90 Unspecified osteoarthritis, unspecified site; Z79.1 Long term (current) use of non-steroidal anti-inflammatories (NSAID); Z79.899 Other long term (current) drug therapy; Z88.7 Allergy status to serum and vaccine; Z91.041 Radiographic dye allergy status; Z88.2 Allergy status to sulfonamides; W01.0XXA Fall on same level from slipping, tripping and stumbling without subsequent striking against object, initial encounter
CPT/HCPCS: 70450; 72125; 99284

== ENCOUNTER → 2023-03-04 | Outpatient (CLI) | payer MEDICARE, BC ==
[2023-03-04 18:24] LABS: Basophils # (A) 0.06 X 10*3/uL (0.00-0.10); Basophils % (A) 0.8 %; Eosinophils # (A) 0.22 X 10*3/uL (0.04-0.35); HCT 33.9 % (37.2-46.3); HGB 10.8 g/dL (12.0-15.0); Lymphocytes # (A) 1.31 X 10*3/uL (0.90-5.00); Lymphocytes % (A) 17.7 %; MCH 31.3 pg (27.0-32.0); MCHC 31.9 g/dL (32.0-37.0); MCV 98.3 FL (80.0-97.0); Mean Platelet Volume 9.2 FL (9.5-12.2); Monocytes # (A) 0.86 X 10*3/uL (0.20-1.00); Monocytes % (A) 11.6 %; NRBC Per 100 WBC 0 X 10*3/uL (0.00-0.01); Neutrophils # (A) 4.94 X 10*3/uL (1.80-7.70); Neutrophils % (A) 66.5 %; Platelet Count 296 X 10*3/uL (140-440); RBC 3.45 X 10*6/uL (4.10-5.20); RDW 12.9 % (11.5-14.5); WBC 7.42 X 10*3/uL (4.50-10.00)
[2023-03-04 18:31] LABS: Erythrocyte Sedimentation Rate 17 mm/Hr (0-30)
[2023-03-04 18:55] LABS: ALT 27 U/L (8-44); AST 31 U/L (13-35); Albumin/Globulin Ratio 2.11 Ratio (1.60-3.17); Alkaline Phosphatase 91 U/L (41-126); BUN/Creat Ratio 19.67 Ratio (12.00-20.00); Blood Urea Nitrogen 17.7 mg/dL (9.0-27.0); Calcium 9.6 mg/dL (8.7-10.3); Carbon Dioxide 26.5 mmol/L (21.6-31.8); Chloride 95 mmol/L (96-109); Globulin 1.9 g/dL (1.6-3.3); Glucose 84 mg/dL (70-110); Potassium 4.6 mmol/L (3.5-5.5); Sodium 133 mmol/L (135-145); Total Bilirubin 0.3 mg/dL (0.3-1.2); Total Protein 5.9 g/dL (6.2-8.2)
== END | disposition home or self-care (01) ==
LOC: LABWHC1 09:24
PROVIDERS: ATTEND Family Medicine
DX: I10 Essential (primary) hypertension (principal); I87.311 Chronic venous hypertension (idiopathic) with ulcer of right lower extremity; L97.913 Non-pressure chronic ulcer of unspecified part of right lower leg with necrosis of muscle; R60.0 Localized edema
CPT/HCPCS: 36415; 80053; 84134; 85025; 85652; 86140

== ENCOUNTER → 2023-03-23 | Outpatient (CLI) | payer MEDICARE, BC ==
--- NOTE | 2023-03-24 09:11 | US ---
EXAMINATION TYPE: US arterial LE single level DATE OF EXAM: 03/23/2023 3:44 PM CLINICAL INDICATION: Female, 88 years old with history of I87.311 CHRONIC VENOUS HYPERTENSION WITH UL CER OF; non healing wound right ankle History of: Smoker: n Hypertension: y Diabetic: n Hyperlipidemia: y TIA/CVA: TIA Previous Vascular Surgery: n CAD: n IN: n Vascular Ulcers: n Claudication: n Gangrene: n Doppler Waveforms: Right: Multiphasic Left: Multiphasic Right Brachial Pressure: 150 Left Brachial Pressure: h/o lymph node resection, deferred Ankle-Brachial Indices: Right: 1.1 Left: 1.0 Toe Brachial Indices: Right: 0.6 Left: 0.5 IMPRESSION: Ankle-brachial indices within normal limits bilaterally. Toe brachial indices suggestive of severe pe ripheral vascular disease.
--- NOTE | 2023-03-24 09:13 | US ---
EXAMINATION TYPE: US venous doppler duplex LE RT DATE OF EXAM: 03/23/2023 3:58 PM COMPARISON: NONE CLINICAL INDICATION: Female, 88 years old with history of I87.311; non healing wound on right ankle x 2 months SIDE PERFORMED: Right TECHNIQUE: The lower extremity deep venous system is examined utilizing real time linear array sonog ange with graded compression, doppler sonography and color-flow sonography. VESSELS IMAGED: Common Femoral Vein Deep Femoral Vein Greater Saphenous Vein * Femoral Vein Popliteal Vein Small Saphenous Vein * Proximal Calf Veins (* superficial vessels) Patient unable to tolerate compression within right groin, unable to do those images, good color flow seen Right Leg: Negative for DVT IMPRESSION: Grayscale, color doppler, spectral doppler imaging performed of the deep veins of the lo wer extremities. There is normal flow, compressibility, vascular waveforms.
== END | disposition home or self-care (01) ==
LOC: RADUSWWP 15:04
PROVIDERS: ATTEND Family Medicine
DX: I87.311 Chronic venous hypertension (idiopathic) with ulcer of right lower extremity (principal); L97.913 Non-pressure chronic ulcer of unspecified part of right lower leg with necrosis of muscle; I10 Essential (primary) hypertension; R60.0 Localized edema
CPT/HCPCS: 93922; 93970

== ENCOUNTER → 2024-09-03 | Outpatient (CLI) | payer MEDICARE, BC ==
--- NOTE | 2024-09-03 16:42 | US ---
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 Patient takes baby aspirin TECHNIQUE: Grayscale color Doppler and spectral Doppler imaging of the lower extremity veins. FINDINGS: SIDE PERFORMED: BLEV 1) Color flow is present and patency is documented in the following vessels. No DVT or SVT is noted . Common Femoral Vein Deep Femoral Vein Femoral Vein Popliteal Vein Proximal Calf Veins Greater Saph Vein Upper Small Saph Vein 2) There is venous reflux noted at the following venous levels: There appears to be some reflux in the right CFV and right GSV. Possible reflux in right DFV. Complex area seen left medial popliteal fossa: 5.6 x 3.5 x 1.7 cm. Color Doppler imaging shows patency of the vessels. Spectral waveforms are within normal limits. IMPRESSION: 1. No deep venous thrombosis of the bilateral lower extremities. 2. Venous insufficiency within the right CFV and GSV possibly within the right DFV. 3. Left popliteal fossa cyst. [facility], , 09/03/2024 4:39 PM
--- NOTE | 2024-09-03 17:16 | US ---
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 Left BP not performed, hx of left breast surgery, pt usually doesn't get BP in that arm. Left thigh cuff deferred, patient could not tolerate. TECHNIQUE: Systolic pressures were taken of the upper and lower extremity arteries with ankle-brachia l indices and toe brachial indices calculated bilaterally. History of: Smoker: Previous smoker Hypertension: Yes Diabetic: No Hyperlipidemia: Yes TIA/CVA: See notes Previous Vascular Surgery: No CAD: No FL: No Vascular Ulcers: No Claudication: None Gangrene: No FINDINGS: Doppler Waveforms: Right: Multiphasic Left: Multiphasic Brachial Artery systolic pressure: Right: 158 Left: Not performed Posterior Tibial artery systolic pressure: Right: 170 Left: 132 Dorsalis Pedis artery systolic pressure: Right: 161 Left: 128 Toe artery systolic pressure: Right: 94 Left: 46 Ankle-Brachial Indices: Right: 1.08 Left: 0.84 Toe Brachial Indices: Right: 0.59 Left: 0.29 (Normal > 0.6; Mild 0.35 - 0.59, Moderate 0.12 - 0.34, Severe <0.12) IMPRESSION: SEGUNDO: Right: Normal ankle brachial index with toe brachial index suggesting mild peripheral vascular diseas e. Left: Mild Arterial Disease 0.8 - 0.9. [facility], , 09/03/2024 5:14 PM
== END | disposition home or self-care (01) ==
LOC: RADUSWWP 15:24
PROVIDERS: ATTEND Family Medicine
DX: I87.2 Venous insufficiency (chronic) (peripheral) (principal); R23.0 Cyanosis; E78.5 Hyperlipidemia, unspecified; I10 Essential (primary) hypertension; I77.9 Disorder of arteries and arterioles, unspecified; M71.22 Synovial cyst of popliteal space [Baker], left knee
CPT/HCPCS: 93923; 93970